=== PATIENT | male | born 1940 | race Caucasian/White ===

== ENCOUNTER 2019-06-26 23:27 | Inpatient (IN) | payer OTHER ==
--- OUTSIDE RECORDS SUMMARY | 2019-06-26 23:31 | XMS REPORT ---
:1940 Author Organization [facility] t Address [address] [place] [address] Care Team Providers Name Role Phone Unavailable Unavailable Unavailable Payers Payer Name Policy Type Policy Number Effective Date Expiration D ate Problems This patient has no known problems. Allergies, Adverse Reactions, Alerts Allergy Allergy Status Severity Reaction(s) Onset Inactive Treating C omments Name Type Date Date Clinician No Known DA Active U 2018-12 00:00:0 0 Medications This patient has no known medications. Encounters Start End Encounter Admission Attending Care Care Encounter Date/Time Date/Time Type Type Clinicians Facility Department ID 2019-04-08 Inpatient [facility] [id number] 05:46:00 2019-03-23 Inpatient [facility] CAR 7501 10:43:11 2019-02-24 2019-02-24 Outpatient [facility] CAR [id number] 11:40:00 11:40:00 Results Test Description Test Time Test Comments Text Results Atomic Results Result Comments ISTAT BLOOD GAS 2018-12-19 08:08:00 Test Item Value Reference Range Comments ISTAT-PH ARTERIAL (test code = PHAP) 7.283 7.32-7.50 ISTAT-PCO2 ARTERIAL (test code = PCO2AP) 52.2 MMHG 27.0-40 .0 ISTAT-PO2 ARTERIAL (test code = PO2AP) 45 MMHG 80.0-100. 0 ISTAT-HCO3 ARTERIAL (test code = HCO3AP) 24.7 MMOL/L 18-23 ISTAT-BASE EXCESS ARTERIAL (test code = BEAP) -2 MMOL/L ISTAT-SO2 ARTERIAL (test code = SO2AP) 74 % 95-98 IONIZED CALCIUM (test code = CAIABG) 1.23 MMOL/L 1.12-1.24 ISTAT-SODIUM (test code = NAP) 143 MMOL/L 137-144 ISTAT-POTASSIUM (test code = KP) 3.9 MMOL/L 3.1-4.8 ISTAT-GLUCOSE (test code = GLUP) 91 MG/DL 60-99 ISTAT BLOOD [id number] 08:08:00 Test Item Value Reference Range Comments ISTAT-PH ARTERIAL (test code = PHAP) 7.298 7.32-7.50 ISTAT-PCO2 ARTERIAL (test code = PCO2AP) 52.6 MMHG 27.0-40 .0 ISTAT-PO2 ARTERIAL (test code = PO2AP) 201 MMHG 80.0-100. 0 ISTAT-HCO3 ARTERIAL (test code = HCO3AP) 25.8 MMOL/L 18-23 ISTAT-BASE EXCESS ARTERIAL (test code = BEAP) -1 MMOL/L ISTAT-SO2 ARTERIAL (test code = SO2AP) 100 % 95-98 IONIZED CALCIUM (test code = CAIABG) 1.19 MMOL/L 1.12-1.24 ISTAT-SODIUM (test code = NAP) 142 MMOL/L 137-144 ISTAT-POTASSIUM (test code = KP) 3.8 MMOL/L 3.1-4.8 ISTAT-GLUCOSE (test code = GLUP) 93 MG/DL 60-99 BASIC METABOLIC [id number] 06:33:00 Test Item Value Reference Range Comments SODIUM (test code = NA) 140 MMOL/L 137-145 POTASSIUM (test code = K) 4.4 MMOL/L 3.5-5.1 CHLORIDE (test code = CL) 103 MMOL/L 98-107 CARBON DIOXIDE (test code = 27 MMOL/L 22-30 CO2) GLUCOSE (test code = GLU) 115 MG/DL 74-106 BLOOD UREA NITROGEN (test code 20 MG/DL 9-20 = BUN) GLOMERULAR FILTRATION RATE > 60 Repor ting units: ml/min/1.73 (test code = GFR) m2 (Modified MDRD Formula)Referenc e Range: > or = 60 ml/min/1 .73 m2 CREATININE (test code = CREAT) 0.90 MG/DL 0.66-1.25 CALCIUM (test code = CA) 9.4 MG/DL 8.4-10.2 LIPID PROFILE (CORONARY RISK)2018-12-19 06:33:00 Test Item Value Reference Range Comments TRIGLYCERIDES (test code = 79 MG/DL TRIGL YCERIDES REFERENCE TRIG) RANGE:Normal: <1 50 mg/dLBorderline High: 150-199 mg/dLHigh: 200-4 99 mg/dLVery High: >=500 mg/d L CHOLESTEROL (test code = CHOL) 156 MG/DL <200 HDL CHOLESTEROL (test code = 54 MG/DL 40-59 HDL) LIPOPROTEIN LDL (test code = 88 MG/DL 0-99 LDL) OPTIMAL......... <100 mg/dLNEAR OPTIMA L/ABOVE OPTIMAL......... 100-129 mg/dL BORDER LINE HIGH.........130 -159 mg/dL HIGH.........160 -189 mg/dL CARL Y HIGH.........>/= 190 mg/dL [id number] 06:33:00 Test Item Value Reference Range Comments MAGNESIUM (test code = MAG) 2.0 MG/DL 1.6-2.3 BASIC METABOLIC [id number] 06:23:00 Test Item Value Reference Range Comments SODIUM (test code = NA) 140 MMOL/L 137-145 POTASSIUM (test code = K) 4.4 MMOL/L 3.5-5.1 CHLORIDE (test code = CL) 103 MMOL/L 98-107 CARBON DIOXIDE (test code = 27 MMOL/L 22-30 CO2) GLUCOSE (test code = GLU) 115 MG/DL 74-106 BLOOD UREA NITROGEN (test code 20 MG/DL 9-20 = BUN) GLOMERULAR FILTRATION RATE > 60 Repor ting units: ml/min/1.73 (test code = GFR) m2 (Modified MDRD Formula)Referenc e Range: > or = 60 ml/min/1 .73 m2 CREATININE (test code = CREAT) 0.90 MG/DL 0.66-1.25 CALCIUM (test code = CA) 9.4 MG/DL 8.4-10.2 LIPID PROFILE (CORONARY RISK)2018-12-19 06:23:00 Test Item Value Reference Range Comments TRIGLYCERIDES (test code = 79 MG/DL TRIGL YCERIDES REFERENCE TRIG) RANGE:Normal: <1 50 mg/dLBorderline High: 150-199 mg/dLHigh: 200-4 99 mg/dLVery High: >=500 mg/d L CHOLESTEROL (test code = CHOL) 156 MG/DL <200 HDL CHOLESTEROL (test code = 54 MG/DL 40-59 HDL) LIPOPROTEIN LDL (test code = MG/DL 0-99 LDL) [id number] 06:23:00 Test Item Value Reference Range Comments MAGNESIUM (test code = MAG) 2.0 MG/DL 1.6-2.3 BASIC METABOLIC [id number] 06:22:00 Test Item Value Reference Range Comments SODIUM (test code = NA) 140 MMOL/L 137-145 POTASSIUM (test code = K) 4.4 MMOL/L 3.5-5.1 CHLORIDE (test code = CL) 103 MMOL/L 98-107 CARBON DIOXIDE (test code = 27 MMOL/L 22-30 CO2) GLUCOSE (test code = GLU) 115 MG/DL 74-106 BLOOD UREA NITROGEN (test code 20 MG/DL 9-20 = BUN) GLOMERULAR FILTRATION RATE > 60 Repor ting units: ml/min/1.73 (test code = GFR) m2 (Modified MDRD Formula)Referenc e Range: > or = 60 ml/min/1 .73 m2 CREATININE (test code = CREAT) 0.90 MG/DL 0.66-1.25 CALCIUM (test code = CA) MG/DL 8.7-9.7 LIPID PROFILE (CORONARY RISK)2018-12-19 06:22:00 Test Item Value Reference Range Comments TRIGLYCERIDES (test code = TRIG) MG/DL CHOLESTEROL (test code = CHOL) 156 MG/DL <200 HDL CHOLESTEROL (test code = HDL) MG/DL 40-59 LIPOPROTEIN LDL (test code = LDL) MG/DL 0-99 [id number] 06:22:00 Test Item Value Reference Range Comments MAGNESIUM (test code = MAG) MG/DL 1.6-2.3 BASIC METABOLIC [id number] 06:19:00 Test Item Value Reference Range Comments SODIUM (test code = NA) 140 MMOL/L 137-145 POTASSIUM (test code = K) 4.4 MMOL/L 3.5-5.1 CHLORIDE (test code = CL) 103 MMOL/L 98-107 CARBON DIOXIDE (test code = CO2) MMOL/L 22-30 GLUCOSE (test code = GLU) MG/DL 74-106 BLOOD UREA NITROGEN (test code = BUN) MG/DL 9-20 GLOMERULAR FILTRATION RATE (test code = GFR) CREATININE (test code = CREAT) MG/DL 0.66-1.25 CALCIUM (test code = CA) MG/DL 8.7-9.7 LIPID PROFILE (CORONARY RISK)2018-12-19 06:19:00 Test Item Value Reference Range Comments TRIGLYCERIDES (test code = TRIG) MG/DL CHOLESTEROL (test code = CHOL) MG/DL <200 HDL CHOLESTEROL (test code = HDL) MG/DL 40-59 LIPOPROTEIN LDL (test code = LDL) MG/DL 0-99 [id number] 06:19:00 Test Item Value Reference Range Comments MAGNESIUM (test code = MAG) MG/DL 1.6-2.3 PROTHROMBIN [id number] 06:12:00 Test Item Value Reference Range Comments PROTHROMBIN TIME PATIENT (test 10.4 SECONDS 9.6-11.6 code = PTP) INTERNATIONAL NORMAL RATIO 1.0 0.8-1.1 The I NR is to be used only (test code = INR) for monitoring oral anticoagulantthe rapy. INDICATION INR VALUE 1. Prophylaxis, haja p venous thrombosis, i ncluding high risk surger y. 2.0 - 3 .0 2. Prophylaxis, haja p venous thrombosis, h ip surgery, treatme nt for deep venous t hrombosis or pulmonary pre vention of systemic embo lism in patients with valvular heart disease, a trial fibrillation, tissue heart valve, or acute myocardial in farction. 2.0 - 3.0 3 . Mechanical prost hesis heart valves, recurrent systemic embolis m. 3.0 - 4. 5 Comments to Workforce Staffing Advisor: WILL BRING TO LABPTT [id number] 06:12:00 Test Item Value Reference Range Comments PTT ACTIVATED (test code = APTT) 29.6 SECONDS 22.0-33.0 Comments to Workforce Staffing Advisor: [facility] W/AUTO [id number] 05:58:00 Test Item Value Reference Range Comments WHITE BLOOD CELL (test code = WBC) 5.6 K/MM3 3.8-9.8 RED BLOOD CELL (test code = RBC) 4.09 M/MM3 3.95-5.67 HEMOGLOBIN (test code = HGB) 13.5 G/DL 12.4-16.7 HEMATOCRIT (test code = HCT) 41.9 % 35.9-49.5 MEAN CELL VOLUME (test code = MCV) 102 fL 81.7-96.1 MEAN CELL HGB (test code = MCH) 33.0 pg 27.6-33.2 MEAN CELL HGB CONCETRATION (test code = MCHC) 32.2 % 32 .9-35.5 RED CELL DISTRIBUTION WIDTH (test code = RDW) 13.4 % 12 .1-15.2 PLATELET COUNT (test code = PLT) 169 K/MM3 129-368 MEAN PLATELET VOLUME (test code = MPV) 9.5 fl 7.4-10.4 NEUTROPHIL % (test code = NT%) 65.2 % 43-75 IMMATURE GRANULOCYTE % (test code = IG%) 0.4 % 0.0-2.0 LYMPHOCYTE % (test code = LY%) 18.0 % 14-44 MONOCYTE % (test code = MO%) 10.9 % 4-13 EOSINOPHIL % (test code = EO%) 5.0 % 0-6 BASOPHIL % (test code = BA%) 0.5 % 0-2 NUCLEATED RBC % (test code = NRBC%) 0.0 % 0-1.0 NEUTROPHIL # (test code = NT#) 3.65 K/mm3 2.0-7.6 IMMATURE GRANULOCYTE # (test code = IG#) 0.02 x10 3/uL 0-0.03 LYMPHOCYTE # (test code = LY#) 1.01 K/mm3 1.0-3.8 MONOCYTE # (test code = MO#) 0.61 K/mm3 0.1-0.8 EOSINOPHIL # (test code = EO#) 0.28 K/mm3 0.0-0.2 BASOPHIL # (test code = BA#) 0.03 K/mm3 0.0-0.2 NUCLEATED RBC # (test code = NRBC#) 0.00 K/mm3 0.0-0.1
[2019-06-27 00:33] LABS: Absolute Lymphocytes (CBC) 0.1 K/uL (0.7-4.9); Basophils % 0.1 % (0-1.3); Lymphocytes % 1.1 % (15.3-44.8); MPV 8.2 fL (7.6-11.3); RBC Red Blood Cell Count 3.96 M/uL (4.33-5.43)
[2019-06-27] MEDS ORDERED: NA CHLORIDE 0.9% 1,000 ML ONE ×5 (00:37→16:32)
[2019-06-27 00:41] LABS: Protime INR 1.34
[2019-06-27 00:53] LABS: Albumin 3.6 g/dL (3.4-5.0); Bilirubin Direct 0.2 mg/dL (0-0.2); Bilirubin Total 0.8 mg/dL (0.2-1.0); Magnesium 1.7 mg/dL (1.8-2.4); Potassium 4.9 mmol/L (3.5-5.1); Protein, Total 7.9 g/dL (6.4-8.2); Troponin (Emerg Dept Use Only) 0.46 ng/mL (0.0-0.045)
[2019-06-27 01:21] LABS: Blood Morphology Comment NOT SEEN (NOT SEEN); Platelet Estimate ADEQ
[2019-06-27 01:59] LABS: Urine Appearance CLEAR; Urine Bilirubin NEGATIVE (NEG); Urine Blood 3+ (NEG); Urine Color YELLOW; Urine Glucose NEGATIVE (NEG); Urine Protein 2+ (NEG); Urine Urobilinogen 0.2 mg/dL (0.2-1.0); Urine pH 6.5 (5.0-7.0)
[2019-06-27 02:02] LABS: Urine Microscopic Reflex ORDER UMIC
[2019-06-27 02:14] LABS: Urine Amorphous Sediment 2+ /HPF (NONE SEEN); Urine Bacteria 20-50 /HPF (NONE SEEN); Urine Culture Reflex Order NOT NEEDED; Urine Mucus 2+ /HPF (NONE SEEN)
[2019-06-27] MEDS ORDERED: PIPER/TAZO/NS 3.375gm 3.375 GM/100 ML BAG ONE (03:00)
[2019-06-27] MEDS ORDERED: ACETAMINOPHEN 325 MG TABLET ONE (03:14)
[2019-06-27] MEDS ORDERED: ACETAMINOPHEN 650MG/RECT SUPP PR ONE (03:14)
[2019-06-27 03:56] LABS: Urine Blood 3+ (NEG); Urine Glucose NEGATIVE (NEG); Urine pH 6.5 (5.0-7.0)
[2019-06-27 03:57] LABS: Urine Protein 2+ (NEG)
[2019-06-27] MEDS ORDERED: NA CHLORIDE 0.9% 250 ML ONE (04:05)
[2019-06-27] MEDS ORDERED: VANCOMYCIN 1 GM/VIAL ONE (04:05)
--- NOTE | 2019-06-27 04:56 | ER ---
Nurse's Notes [facility] Name: Wing Vazquez Age: 79 yrs Sex: Male : 1940 Arrival Date: 06/26/2019 Time: 23:31 Bed 4 Private MD: Diagnosis: Other sepsis;Altered mental status, unspecified Presentation: 06/25 23:41 Chief complaint: Parent and/or Guardian states: Pale, weak, confused, abdominal pain ll1 for 1 day. Thrush had been getting better the past two weeks, but seems to be coming back. Coronavirus screen: Proceed with normal triage. Patient denies a cough. Patient denies shortness of breath or difficulty breathing. Patient denies measured and/or subjective temperature greater than 100.4F prior to today's visit. Patient denies travel on a cruise ship or to a country the [facility] currently lists as an affected area. Patient denies contact with known and/or suspected case of COVID-19. Ebola Screen: Patient denies travel to an Ebola-affected area in the 21 days before illness onset. Initial Sepsis Screen: Does the patient meet any 2 criteria? Altered Mental Status. HR > 90 bpm. Does the patient have a suspected source of infection? No. Patient's initial sepsis screen is negative. Risk Assessment: Do you want to hurt yourself or someone else? Patient reports no desire to harm self or others. Onset of symptoms was June 26, 2019. 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 - Social history:: Patient/guardian denies using alcohol, street drugs, tobacco products, Smoking status: Patient denies any tobacco usage or history of. Screenin:55 Abuse screen: Denies threats or abuse. Nutritional screening: No deficits noted. tl2 Tuberculosis screening: No symptoms or risk factors identified. Fall Risk IV access (20 points). Gait- Weak (10 pts.). Assessment: 23:55 General: Appears ill, emaciated, Behavior is cooperative, listless. Pain: Denies pain. tl2 Neuro: Level of Consciousness is awake, confused, listless, Oriented to person, place. Cardiovascular: Denies chest pain, Rhythm is sinus tachycardia. Respiratory: Airway is patent Respiratory effort is even, unlabored, Respiratory pattern is regular, symmetrical. GI: Parent/caregiver reports the patient having anorexia. : No signs and/or symptoms were reported regarding the genitourinary system. Derm: Skin is pale, Skin temperature is warm. 06/26 01:00 Reassessment: Patient appears in no apparent distress at this time. lp1 02:00 Reassessment: Patient appears in no apparent distress at this time. lp1 03:15 Reassessment: MD notified of pt's elevated temp, new orders see APR. tl2 03:55 Reassessment: MD aware of pt's worsening condition. ordered for spinal tap setup. tl2 Pt's power of gatehouse attendant is not present to give consent, MD stated that this procedure is emergent and to continue with procedure. 04:30 Reassessment: Dr. Schumacher at bedside, ordered Coronavirus test through [employer], will send lp1 to lab. 22:00 Reassessment: PT Transferred to ICU, awake,alert, stable, taken up with NS \T\ 100ml/hr jb4 and Levophed 9mcg/min infusing to PICC in right femoral area. Remains on monitor. Pt had 550 urine output from 1900 to 2200. Vital Signs: 06/25 23:41 BP 114 / 60; Pulse 129; Resp 17; Temp 99.4; Pulse Ox 98% ; ll1 23:55 BP 114 / 60; Pulse 121; Resp 22; Temp 99.4; Pulse Ox 99% on R/A; Weight 58.97 kg; lp1 Height 5 ft. 11 in. (180.34 cm); 06/26 00:52 BP 128 / 59; Pulse 128; Resp 22; Temp 98.6(O); Pulse Ox 99% on R/A; tl2 02:48 BP 105 / 50; Pulse 124; Resp 22; Pulse Ox 100% on R/A; tl2 03:15 BP 106 / 48; Pulse 124; Resp 22; Temp 103.4(A); Pulse Ox 99% on R/A; tl2 03:55 BP 110 / 54; Pulse 120; Resp 22; Temp 104.5(R); Pulse Ox 99% on R/A; tl2 05:30 Pulse 115; Resp 24; Temp 102.2(C); Pulse Ox 99% on R/A; tl2 06:09 BP 82 / 57; Pulse 115; Resp 25; Temp 103(C); Pulse Ox 97% on R/A; tl2 06:43 BP 95 / 59; Pulse 112; Resp 27; Temp 102.5(C); Pulse Ox 98% on R/A; tl2 08:01 Weight 68.04 kg; Height 5 ft. 7 in. (170.18 cm); em 08:01 Body Mass Index 23.49 (68.04 kg, 170.18 cm) em Trosper Coma Score: 00:00 Eye Response: spontaneous(4). Verbal Response: confused(4). Motor Response: obeys lp1 commands(6). Total: 14. ED Course: 06/25 23:31 Patient arrived in ED. cl3 23:42 Triage completed. ll1 23:44 Arm band placed on Patient placed in an exam room, on a stretcher. ll1 23:55 Patient has correct armband on for positive identification. Placed in gown. Bed in low tl2 position. Call light in reach. Side rails up X2. Adult w/ patient. 23:55 Inserted saline lock: 20 gauge in right forearm, using aseptic technique. Blood tl2 collected. 23:57 Poncho Lyons MD is Attending Physician. [facility] 06/26 00:36 XRAY Chest (1 view) In Process Unspecified. EDMS 00:49 Influenza Screen (a \T\ B) Sent. tl2 01:14 CT Head Brain wo Cont In Process Unspecified. EDMS 02:00 Lincoln cath inserted, using sterile technique, 16 Fr., by az, balloon inflated, to tl2 gravity drainage, urine specimen collected. 02:17 CT Abd/Pelvis - Without Contrast In Process Unspecified. EDMS 02:39 Karolyn Narayanan, RN is Primary Nurse. tl2 04:45 Assist provider with lumbar puncture: Set up LP tray. Performed by Poncho Lyons MD lp1 CSF is clear. Puncture site dressed with band aid, Procedure was successful. Patient tolerated well. 04:53 Cornelio Murphy MD is Hospitalizing Provider. mh7 05:29 original lincoln removed and replaced with a Criticore lincoln to monitor temp. tl2 07:44 Patient admitted, IV remains in place. lp1 10:10 Attending Physician role handed off by Poncho Lyons MD tamera 10:10 Jones Steel MD is Attending Physician. tamera Administered Medications: 00:49 Drug: NS 0.9% 1000 ml Route: IV; Rate: 1 bolus; Site: right antecubital; tl2 01:30 Follow up: IV Status: Completed infusion; IV Intake: 1000ml lp1 02:40 Drug: Zosyn 3.375 grams Route: IVPB; Infused Over: 60 mins; Site: right forearm; tl2 04:07 Follow up: IV Status: Completed infusion; IV Intake: 100ml tl2 03:45 Drug: Tylenol Suppository 650 mg Route: DC; tl2 07:46 Follow up: Response: No adverse reaction; Temperature is decreased lp1 04:06 Drug: vancoMYCIN 1 grams Route: IVPB; Infused Over: 2 hrs; Site: right forearm; tl2 07:45 Follow up: IV Status: Completed infusion; IV Intake: 250ml lp1 04:06 Drug: NS 0.9% 1000 ml Route: IV; Rate: 125 ml/hr; Site: right forearm; tl2 13:09 Follow up: IV Status: Completed infusion; IV Intake: 1000ml em Intake: 01:30 IV: 1000ml; Total: 1000ml. lp1 04:07 IV: 100ml; Total: 1100ml. tl2 07:45 IV: 250ml; Total: 1350ml. lp1 13:09 IV: 1000ml; Total: 2350ml. em Outcome: 04:55 Decision to Hospitalize by Provider. mh7 07:44 Admitted to ER Hold. Please see [facility] for further documentation. lp1 07:44 critical 22:16 Patient left the ED. mw2 Signatures: Dispatcher [employer] EDJones Piña MD MD cha Munoz, Edgar, RN RN em Pena, Laura RN RN lp1 Karolyn Narayanan RN RN tl2 Jonnathan Ortiz RN RN 4 Graham Calles 2 Fabiana Mccormick cl3 Monico Mccormick RN RN ll1 Poncho Lyons MD MD mh7 Corrections: (The following items were deleted from the chart) 01:16 00:52 BP 128 / 59; Pulse 128bpm; Resp 22bpm; Pulse Ox 99% RA; tl2 tl2 07:28 05/09 23:55 BP 114 / 60; Pulse 121bpm; Resp 22bpm; Pulse Ox 99% RA; Temp 99.4F; tl2 lp1
--- NOTE | 2019-06-27 04:56 | EDPHYS ---
Physician Documentation [facility] Name: Wing Vazquez Age: 79 yrs Sex: Male : 1940 Arrival Date: 06/26/2019 Time: 23:31 Bed 4 Private MD: ED Physician Jones Steel HPI: 06/26 00:37 This 79 yrs old Male presents to ER via Wheelchair with complaints of Altered mh7 Mental Status. 00:37 The patient presents with confusion, decreased appetite. Onset: The symptoms/episode mh7 began/occurred yesterday. Possible causes: unknown. Associated signs and symptoms: Pertinent positives: confusion, weakness, decreased appetite. Current symptoms: In the emergency department the patient's symptoms are unchanged from the initial presentation. Unable to obtain HPI due to altered mental status. Historical: - Allergies: 06/25 23:44 No Known Allergies; ll1 - PMHx: 23:44 ataxia; Pneumonia; hemachromatosis; Hypertension; ll1 - PSHx: 23:44 Left ear; ll1 23:44 heart valve replacement 04/08; ll1 - Immunization history:: Adult Immunizations up to date. - Social history:: Patient/guardian denies using alcohol, street drugs, tobacco products, Smoking status: Patient denies any tobacco usage or history of. ROS: 06/26 00:37 Unable to obtain ROS due to altered mental status. 7 05:04 Allergy/Immunology: Negative for hives, rash, and allergies. 7 Exam: 00:37 Head/Face: Normocephalic, atraumatic. Eyes: Pupils equal round and reactive to light, mh7 extra-ocular motions intact. Lids and lashes normal. Conjunctiva and sclera are non-icteric and not injected. Cornea within normal limits. Periorbital areas with no swelling, redness, or edema. Neck: Trachea midline, no thyromegaly or masses palpated, and no cervical lymphadenopathy. Supple, full range of motion without nuchal rigidity, or vertebral point tenderness. No Meningismus. Chest/axilla: Normal chest wall appearance and motion. Nontender with no deformity. No lesions are appreciated. Abdomen/GI: Soft, non-tender, with normal bowel sounds. No distension or tympany. No guarding or rebound. No evidence of tenderness throughout. Back: No spinal tenderness. No costovertebral tenderness. Full range of motion. Skin: Warm, dry with normal turgor. Normal color with no rashes, no lesions, and no evidence of cellulitis. MS/ Extremity: Pulses equal, no cyanosis. Neurovascular intact. Full, normal range of motion. 00:37 ENT: Mouth: Lips: dry, Oral mucosa: dry, Tongue: 00:37 Cardiovascular: Rate: tachycardic, Rhythm: regular, Pulses: no pulse deficits are appreciated, Heart sounds: normal, normal S1and S2, Edema: is not appreciated, JVD: is not appreciated. 00:37 Respiratory: the patient does not display signs of respiratory distress, Respirations: normal, Breath sounds: rhonchi, that are mild, are scattered, Respiratory rate: normal 00:37 Abdomen/GI: Exam negative for abnormal bowel sounds, bruising, discomfort, distension, guarding, injury, masses, pulsatile mass, rebound tenderness, scars, splenomegaly, tenderness, Inspection: 07:03 ECG was reviewed by the Attending Physician. 7 Vital Signs: 06/25 23:41 BP 114 / 60; Pulse 129; Resp 17; Temp 99.4; Pulse Ox 98% ; ll1 23:55 BP 114 / 60; Pulse 121; Resp 22; Temp 99.4; Pulse Ox 99% on R/A; Weight 58.97 kg; lp1 Height 5 ft. 11 in. (180.34 cm); 06/26 00:52 BP 128 / 59; Pulse 128; Resp 22; Temp 98.6(O); Pulse Ox 99% on R/A; tl2 02:48 BP 105 / 50; Pulse 124; Resp 22; Pulse Ox 100% on R/A; tl2 03:15 BP 106 / 48; Pulse 124; Resp 22; Temp 103.4(A); Pulse Ox 99% on R/A; tl2 03:55 BP 110 / 54; Pulse 120; Resp 22; Temp 104.5(R); Pulse Ox 99% on R/A; tl2 05:30 Pulse 115; Resp 24; Temp 102.2(C); Pulse Ox 99% on R/A; tl2 06:09 BP 82 / 57; Pulse 115; Resp 25; Temp 103(C); Pulse Ox 97% on R/A; tl2 06:43 BP 95 / 59; Pulse 112; Resp 27; Temp 102.5(C); Pulse Ox 98% on R/A; tl2 08:01 Weight 68.04 kg; Height 5 ft. 7 in. (170.18 cm); em 08:01 Body Mass Index 23.49 (68.04 kg, 170.18 cm) em Elizabeth Coma Score: 00:00 Eye Response: spontaneous(4). Verbal Response: confused(4). Motor Response: obeys lp1 commands(6). Total: 14. Procedures: 04:56 Lumbar Puncture: Patient placed in right lateral decubitus position. Prepped with [facility] Betadine. Draped using sterile technique. Collected 8 ml's of clear fluid. Sample sent to lab. Puncture site dressed with band aid, Patient tolerated well. 10:10 Central Line: the site was prepped with Betadine, in sterile fashion, a triple lumen tamera catheter was inserted, in the right in 1 attempts. placement was verified, by blood return, the site was dressed with using sterile technique, the patient tolerated the procedure, well. MDM: 06/25 23:58 Patient medically screened. [facility] 06/26 04:56 Differential Diagnosis: CVA, electrolyte abnormality, hypoglycemia, intracranial bleed, [facility] meningitis, pneumonia, sepsis, UTI, volume depletion. Data reviewed: vital signs, nurses notes, EKG, radiologic studies, plain films. Data interpreted: firestop/containment worker: rate is 120 beats/min, rhythm is regular, Interpretation: Pulse oximetry: on room air is 99 %. Medication response: acetaminophen administration has lowered the patient's temperature. Response to treatment: the patient's symptoms have mildly improved after treatment. ED course: Still with some confusion but follows most commands, tachycardia but vitals otherwise stable, no focal neurological deficits. LP performed with results pending. Discussed with and admitted to Dr. Murphy for ICU care.. 06/26 00:10 Order name: Basic Metabolic Panel; Complete Time: : [facility] 06/26 00:10 Order name: CBC with Diff; Complete Time: : [facility] 06/26 00:10 Order name: LFT's; Complete Time: : [facility] 06/26 00:10 Order name: Magnesium; Complete Time: : [facility] 06/26 00:10 Order name: NT PRO-BNP; Complete Time: : [facility] 06/26 00:10 Order name: PT-INR; Complete Time: 01:03 [facility] 06/26 00:10 Order name: Troponin (emerg Dept Use Only); Complete Time: 01:03 [facility] 06/26 00:10 Order name: Urinalysis; Complete Time: 02:18 [facility] 06/26 00:10 Order name: Lactate; Complete Time: 01:03 [facility] 06/26 00:10 Order name: Influenza Screen (a \T\ B); Complete Time: 02:18 [facility] 06/26 00:10 Order name: AMMONIA; Complete Time: 01:29 [facility] 06/26 01:04 Order name: Blood Culture Adult (2) [facility] 06/26 01:20 Order name: Manual Differential; Complete Time: 01:29 [facility] 06/26 01:49 Order name: Urine Culture [facility] 06/26 00:10 Order name: XRAY Chest (1 view) [facility] 06/26 00:10 Order name: CT Head Brain wo Cont [facility] 06/26 01:34 Order name: CT Abd/Pelvis - Without Contrast [facility] 06/26 02:05 Order name: Urine Microscopic Only; Complete Time: 02:18 [facility] 06/26 03:45 Order name: Urine Dipstick--Ancillary (enter results); Complete Time: 04:50 [facility] 06/26 03:56 Order name: Lactate Sepsis 2 HR Follow-up; Complete Time: 04:50 [facility] 06/26 04:44 Order name: CSF Bacterial Antigens (tube 1); Complete Time: 09:41 [facility] 06/26 04:44 Order name: Csf Culture [facility] 06/26 04:44 Order name: Fluid Cell Count,Body; Complete Time: 09:41 [facility] 06/26 04:44 Order name: Spinal Fluid Profile; Complete Time: 09:41 [facility] 06/26 05:00 Order name: Troponin (emerg Dept Use Only); Complete Time: 09:41 [facility] 06/26 05:18 Order name: COVID-19 [facility] 06/26 20:00 Order name: US EDVT 06/26 00:10 Order name: EKG; Complete Time: 00:11 [facility] 06/26 00:10 Order name: Cardiac monitoring; Complete Time: 00:29 [facility] 06/26 00:10 Order name: EKG - Nurse/Tech; Complete Time: 00:29 7 06/26 00:10 Order name: IV Saline Lock; Complete Time: 00: 7 06/26 00:10 Order name: Labs collected and sent; Complete Time: 00:06/26 00:10 Order name: O2 Per Protocol; Complete Time: 00:7 06/26 00:10 Order name: O2 Sat Monitoring; Complete Time: 00: 7 06/26 04:44 Order name: LP Consents; Complete Time: 04:47 7 06/26 04:44 Order name: LP Setup; Complete Time: 04:47 7 06/26 05:59 Order name: CONS Pharmacy Consult EDVT 06/26 05:59 Order name: CONS Physician Consult [facility] 06/26 05:59 Order name: Heart Healthy EDMS EC:03 Rate is 122 beats/min. Rhythm is regular. QRS [place] is Normal. MN interval is normal. [facility] QRS interval is normal. QT interval is normal. No Q waves. T waves are Inverted in leads V1, V2, V3. Administered Medications: 00:49 Drug: NS 0.9% 1000 ml Route: IV; Rate: 1 bolus; Site: right antecubital; tl2 01:30 Follow up: IV Status: Completed infusion; IV Intake: 1000ml lp1 02:40 Drug: Zosyn 3.375 grams Route: IVPB; Infused Over: 60 mins; Site: right forearm; tl2 04:07 Follow up: IV Status: Completed infusion; IV Intake: 100ml tl2 03:45 Drug: Tylenol Suppository 650 mg Route: MN; tl2 07:46 Follow up: Response: No adverse reaction; Temperature is decreased lp1 04:06 Drug: vancoMYCIN 1 grams Route: IVPB; Infused Over: 2 hrs; Site: right forearm; tl2 07:45 Follow up: IV Status: Completed infusion; IV Intake: 250ml lp1 04:06 Drug: NS 0.9% 1000 ml Route: IV; Rate: 125 ml/hr; Site: right forearm; tl2 13:09 Follow up: IV Status: Completed infusion; IV Intake: 1000ml em Disposition: 04:56 Critical Care:. [facility] 07:00 Co-signature as Attending Physician, Poncho Lyons MD. mh7 Disposition: 06/27/19 04:55 Hospitalization ordered by Cornelio Murphy for Inpatient Admission. Preliminary diagnosis are Other sepsis, Altered mental status, unspecified. - Bed requested for Intensive Care Unit. - Status is Inpatient Admission. mw2 - Condition is Serious. - Problem is new. - Symptoms are unchanged. Critical care time excluding procedures: 04:56 Critical care time: Bedside Care: 15 minutes, Consultation: 5 minutes, Family 7 Intervention: 10 minutes. Total time: 30 minutes Signatures: Dispatcher [employer] EDVT Pam Gloria RN Rosio Swenson RN Jones Burnette MD MD cha Knox, Taylor, RN RN 2 Marli, Graham 2 Monico Mccormick RN RN 1 Poncho Lyons MD MD Andrei Ocampo RN em Lyssa Vasquez RN lp1 Corrections: (The following items were deleted from the chart) 01:53 01:50 UA MICROSCOPIC+U.LAB.BRZ ordered. [facility] EDVT 06:02 04:55 Hospitalization Ordered by Cornelio Murphy MD for Inpatient Admission. Preliminary mw diagnosis is Other sepsis; Altered mental status, unspecified. Bed requested for Intensive Care Unit. Status is Inpatient Admission. Condition is Serious. Problem is new. Symptoms are unchanged. 7 19:43 06:02 06/27/2019 04:55 Hospitalization Ordered by Cornelio Murphy MD for Inpatient dw Admission. Preliminary diagnosis is Other sepsis; Altered mental status, unspecified. Bed requested for [facility] ER HOLD. Status is Inpatient Admission. Condition is Serious. Problem is new. Symptoms are unchanged. mw 22:16 19:43 06/27/2019 04:55 Hospitalization Ordered by Cornelio Murphy MD for Inpatient mw2 Admission. Preliminary diagnosis is Other sepsis; Altered mental status, unspecified. Bed requested for Intensive Care Unit. Status is Inpatient Admission. Condition is Serious. Problem is new. Symptoms are unchanged. dw
[2019-06-27 05:42] LABS: CSF Glucose 63 mg/dL (40-70)
[2019-06-27] MEDS ORDERED: ONDANSETRON 4 MG/2 ML VIAL IV PRN (05:50)
[2019-06-27] MEDS: Levofloxacin500mg IV 500 MG/100 ML BAG IV SCH (06:00)
[2019-06-27] MEDS: NA CHLORIDE 0.9% 1,000 ML IV SCH ×2 (06:00→15:12)
[2019-06-27 06:24] LABS: Appearance CLEAR (CLEAR); Body Fluid Source CSF; Body Fluid WBC 2 /mm^3; Color of fluid Colorless (COLORLESS)
[2019-06-27] MEDS: HYDROCORTISONE SUC 100 MG INJ IV SCH ×2 (06:30→21:00)
[2019-06-27 06:34] LABS: Appearance CLEAR (CLEAR); Body Fluid Source CSF; Color of fluid Colorless (COLORLESS); Fluid Total Volume 8 ml
[2019-06-27 06:35] LABS: Body Fluid WBC 3 /mm^3
[2019-06-27] MEDS ORDERED: HYDROCORTISONE SUC 100 MG INJ ONE ×2 (06:39→21:25)
[2019-06-27] MEDS ORDERED: CEFTRIAXONE/SWI 1gm 1 GM/10 ML SYR ONE (07:36)
[2019-06-27] MEDS ORDERED: ENOXAPARIN 40 MG/0.4 ML SQ ONE (07:37)
[2019-06-27] MEDS ORDERED: NA CHLORIDE 0.9% 1,000 ML IV ONE (08:00)
--- NOTE | 2019-06-27 08:01 | P.PN ---
Subjective Date of Service: 06/27/19 Primary Care Provider: Dr. Pandya Chief Complaint: Fever Subjective: Other (Follow up sepsis reassessment. Patient is confused. BP low. Making sure Bolus protocol in place. Will order for more fluid bolus and Levophed. SPoke to family. He has history of Hemochromotosis(Dr. Majano), Recent heart valve surgery in [place] with Dr. 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 Family says that he was having fever today and not feeling well.) Physical Examination - Physical Exam General: Cachectic, Confused HEENT: Other (dry mucous membranes) Neck: Supple Respiratory: Clear to auscultation bilaterally, Normal air movement Cardiovascular: Normal pulses, Regular rate/rhythm Gastrointestinal: Normal bowel sounds, Soft and benign, Non-distended Integumentary: No breakdown, No tenderness/swelling, No erythema, No cyanosis, Warmth Neurological: Other (confused) Urinary: Bang catheter - Studies Laboratory Data (last 24 hrs) 06/27/19 00:15: PT 15.7 H, INR 1.34 06/27/19 00:15: WBC 12.8 H, Hgb 12.5 L, Hct 38.0 L, Plt Count 131 L 06/27/19 00:15: Sodium 132 L, Potassium 4.9, BUN 32 H, Creatinine 1.79 H, Glucose 116 H, Magnesium 1.7 L, Total Bilirubin 0.8, AST 74 H, ALT 15, Alkaline Phosphatase 56 Microbiology Data (last 24 hrs): 06/27/19 04:45 Cerebral Spinal Fluid Gram Stain - Final 06/27/19 03:29 Blood - Blood Anaerobic Blood Culture - Final 06/27/19 04:45 Cerebral Spinal Fluid CSF Bacterial Antigens (Tube 1) - Final 06/27/19 00:35 Nasopharnyx Influenza Type A Antigen Screen - Final 06/27/19 00:35 Nasopharnyx Influenza Type B Antigen Screen - Final Medications List Reviewed: Yes (takes Coreg, Lisinopril, Pravastatin, Carbidopa/levodopa, Singulair) Assessment & Plan Discharge Plan: Home Plan to discharge in: Greater than 2 days - Code Status/Comfort Care Code Status Assessed: Yes (Discussed with MPOA, Patient is DNR. ) Physician Review Additional Text: Impression: Fever, Fatigue secondary to Septic Shock with toxic encephalopathy likely related to UTI vs other infetious process Acute renal failure likely related to above Elevated trop lilkely cardiac strain with recent heart valve replacement in March Hx of HTN Hyperlipidemia Ataxia Hyperlipidemia Seasonal allergies Plan: Fever, Fatigue secondary to Septic Shock with toxic encephalopathy likely related to UTI vs other infetious process: Continue with Sepsis protocol. Now on multiple antibiotics. Continue with aggressive fluids. Will add Levophed to maintain MAP. Blood, urine, spinal and nasal swab obtained. COVID testing in progress. Spoke to family-MPOA. Advance directives addressed. He is DNR. Continue with closely monitor. Waiting for ICU bed. Will add DVT prophylaxis. Consulted Renal/PCP-Dr. Pandya, Cardiology-Dr. Sloan, and Pulmonary/ICU-Dr. Manzo. Continue with current meds. Await further recommendations. Acute renal failure likely related to above: Continue as above. Hold Lisinopril Elevated trop lilkely cardiac strain with recent heart valve replacement in March: Monitor Trop, cardiology to address and speak to his outpatient circuitry negative inspector. Obtain ECHO. Hx of HTN: Hold Lisinopril and Coreg. Monitor closely. Continue as above Hyperlipidemia:Restart medication once stable. Ataxia: Will need to restart once more stable. Seasonal allergies: Hold medication. Time Spent Managing Pts Care (In Minutes): 60
--- NOTE | 2019-06-27 08:39 | EKG ---
Test Date: 2019-06-27 Test Time: 00:22:04 Handle Sewer: [place] MEASUREMENT RESULTS: Intervals: Rate: 122 [place]: 178 QRSD: 120 QT: 320 QTc: 456 [place]: P: 75 [place]: 178 QRS: -43 T: 114 INTERPRETIVE STATEMENTS: Sinus tachycardia Left axis deviation Possible Anterior infarct, age undetermined ST & T wave abnormality, consider lateral ischemia Abnormal ECG Compared to ECG 10/25/2014 16:34:25 Left-axis deviation now present Myocardial infarct finding now present ST (T wave) deviation now present Possible ischemia now present Sinus rhythm no longer present Electronically Signed On 06-27-19 08:38:23 CDT by Eh Sloan
[2019-06-27] MEDS: THIAMINE 200 MG/2 ML INJ IVP SCH (09:00)
[2019-06-27] MEDS: FAMOTIDINE 20 MG/2 ML VIAL IV SCH (09:00)
[2019-06-27] MEDS ORDERED: ENOXAPARIN 40 MG/0.4 ML SQ SCH (09:00)
[2019-06-27] MEDS ORDERED: CEFTRIAXONE/SWI 1gm 1 GM/10 ML SYR IV SCH (09:00)
[2019-06-27] MEDS ORDERED: THIAMINE 200 MG/2 ML INJ ONE (09:22)
[2019-06-27] MEDS ORDERED: FAMOTIDINE 20 MG/2 ML VIAL IV ONE (09:22)
[2019-06-27] MEDS: NOREPINEPHRINE 4 MG in D5W 250 ML IV PRN (10:10)
--- NOTE | 2019-06-27 11:04 | RAD REPORT ---
EXAM DESCRIPTION: RAD - Chest Single View - 06/27/2019 12:35 am CLINICAL HISTORY: MALAISE Chest pain. COMPARISON: CHEST SINGLE VIEW dated 10/25/2014 FINDINGS: Portable technique limits examination quality. The lungs are grossly clear. The heart is normal in size. Valve replacement noted. IMPRESSION: No acute intrathoracic process suspected.
[2019-06-27] MEDS ORDERED: VANCOMYCIN 750 MG in NA CHLORIDE 0.9% 150 ML IVPB ONE (12:00)
[2019-06-27] MEDS ORDERED: MAGNESIUM SULFATE 1 gm IVPB 1 GM/100 ML BAG IV ONE ×2 (14:50→15:00)
[2019-06-27] MEDS ORDERED: ACETAMINOPHEN 500 MG TAB ONE (16:00)
[2019-06-27] MEDS ORDERED: VANCOMYCIN/NS 1 gm 1 GM/250 ML BAG IVPB SCH (16:00)
[2019-06-27] MEDS: ACETAMINOPHEN 500 MG TAB PO PRN ×2 (16:01→22:51)
--- NOTE | 2019-06-27 16:40 | P.CNS ---
Date of Consult: 06/27/19 Primary Care Provider: Dr. Pandya Chief Complaint: Fever shock History of Present Illness: Patient is 79 years of age in [facility] virus isolation room history obtained from review of medical records and discussion with the nurse was admitted feeling weak confused abdominal discomfort nose with thrush recently denies any pulmonary complaints patient was febrile. Is hypotensive currently on IV fluids lumbar puncture was negative Allergies seasonal allergies Allergy (Uncoded 11/03/14 20:03) Unknown - Past Medical/Surgical History -: Hemochromatosis -: Hypertension -: Ataxia -: Recent heart valve surgery Physical Examination Temp Pulse Resp BP Pulse Ox 100.5 F 98 H 18 118/73 98 06/27/19 16:01 06/27/19 12:00 06/27/19 15:45 06/27/19 15:45 06/27/19 15:45 Laboratory Data (last 24 hrs) 06/27/19 00:15: PT 15.7 H, INR 1.34 06/27/19 00:15: WBC 12.8 H, Hgb 12.5 L, Hct 38.0 L, Plt Count 131 L 06/27/19 00:15: Sodium 132 L, Potassium 4.9, BUN 32 H, Creatinine 1.79 H, Glucose 116 H, Magnesium 1.7 L, Total Bilirubin 0.8, AST 74 H, ALT 15, Alkaline Phosphatase 56 - Problems (1) Shock Current Visit: Yes Status: Acute Plan: Patient is 79 years of age admitted with fever and hypotension is currently on Levophed drip lumbar puncture is negative for meningitis coronal virus test is pending this fever persists chest x-rays clear patient has renal insufficiency patient's troponin is also elevated mildly elevated PT lactic acid and BNP are also significantly elevated white count mildly elevated no evidence of urosepsis cultures are pending Dc Rocephin continue with vancomycin and levofloxacin According the family members he was pale weak infuse abdominal pain also there is a history of thrush room-air saturation satisfactory high risk for Crohn virus infection bolus with IV fluids
--- NOTE | 2019-06-27 16:50 | CON ---
Date of Consultation: 06/27/[address] Murphy's service on 06/27/2019. I saw the patient on 06/27/2019. Reason For Consultation: Elevated troponin. History Of Present Illness: Mr. Vazquez is a 79-year-old white male. He is a patient of Dr. Wilmer montejo. Apparently, he recently underwent a bioprosthetic aortic valve replacement on 04/08. I discussed the case with Dr. Gunderson. It sounds like patient had normal coronaries then. He also has a histor y of hypertension, ataxia, pneumonia and hemochromatosis. He came in with what appeared to be urosep sis, hypotensive, altered mental status and was found to have elevated troponin. I was consulted. T here is no report of chest pain, nausea, vomiting, diaphoresis, PND, orthopnea, pedal edema, palpitat ion, or syncope. Past Medical History: As stated above. Allergies: NONE. Review of Systems: Negative. Social History: Negative. Family History: Noncontributory. Medications: Listed by Dr. Murphy. Physical Examination: General: Mr. Vazquez was rather obtunded, alert to name only, but not very responsive. Vital Signs: His blood pressure when I first saw him was 80/50. He was in a sinus tach. He was afe brile. HEENT: Negative. Neck: Supple with no bruit, lymphadenopathy, JVD, or thyromegaly. Chest: Fully clear to auscultation and percussion. Cardiac: Revealed a regular rhythm and rate. No murmurs, gallops, or rubs. Abdomen: Benign. Extremities: Revealed no clubbing, cyanosis, or edema. Diagnostic Data: He had a CT of his head that was pending. Chest x-ray was pending. CT of his abdo men and pelvis was pending. His creatinine was 1.79, white count was 12,000. His lactic acid was el evated at 2.8. His troponin was 0.89. His BNP was 4600. Impression And Plan: Hypotension secondary to septic shock, probably urosepsis. I think this is wha t is causing the elevated troponin, elevated white count, elevated creatinine, and altered mental sta tus. The patient is presently on multiple antibiotics and Lovenox. Multiple studies are pending inc luding chest x-ray, CT of his head, abdomen and pelvis. Renal has been consulted. Pulmonary has bee n consulted. Echocardiogram is pending for tomorrow. Continue present regimen. Central line had be en placed just in case one has to use Levophed. Meanwhile, he needs to be hydrated and we will see h ow he does. The case was discussed with Dr. Keyes who was covering for Dr. Murphy and the case was discussed with Dr. Gunderson as well. DEBBIE/MARLENY Voice ID: [id number] Report ID: [id number]
--- NOTE | 2019-06-27 19:58 | RAD REPORT ---
EXAM DESCRIPTION: US - Renal Ultrasound-Complete - 06/27/2019 7:47 pm CLINICAL HISTORY: Acute renal failure Flank pain COMPARISON: ABDOMINAL EXAM COMPLETE dated 04/10/2015 FINDINGS: Both kidneys are normal in size, shape and echotexture. The right kidney measures 10.3 x 4.7 x 4.1 cm. No hydronephrosis, focal mass or perinephric fluid. The left kidney measures 10.6 x 4.9 x 4.9 cm. No hydronephrosis, focal mass or perinephric fluid. 3.4 x 2.8 cm simple cyst cortex of left kidney. The urinary bladder is incompletely distended without gross abnormality seen. IMPRESSION: 3.4 cm simple cyst left kidney, otherwise unremarkable study.
[2019-06-27] MEDS ORDERED: CEFTRIAXONE/SWI 1gm 1 GM/10 ML SYR IVP SCH (21:00)
--- NOTE | 2019-06-27 21:42 | RAD REPORT ---
EXAM DESCRIPTION: CT Abdomen and Pelvis Without Intravenous Contrast CLINICAL HISTORY: The patient is 79 years old and is Male; AMS abdominal pain TECHNIQUE: Axial computed tomography images of the abdomen and pelvis without intravenous contrast. Sagittal and coronal reformatted images were created and reviewed. This CT exam was performed usi ng one or more of the following dose reduction techniques: automated exposure control, adjustment o f the mA and/or kV according to patient size, and/or use of iterative reconstruction technique. COMPARISON: No relevant prior studies available. FINDINGS: LUNG BASES: Minimal dependent densities in the lung bases are present. ABDOMEN: LIVER: Homogeneous without focal mass. GALLBLADDER AND BILE DUCTS: No calcified stones. No ductal dilation. PANCREAS: The pancreas is atrophic. No ductal dilation. SPLEEN: Unremarkable. ADRENALS: Unremarkable. No mass. KIDNEYS AND URETERS: Exophytic left renal cyst measuring 2.9 cm is present. No follow-up imaging is recommended. There is no hydronephrosis or hydroureter of either kidney. STOMACH AND BOWEL: The stomach is minimally distended. The small bowel is normal in caliber. A m oderate amount of stool is present throughout colon. No evidence of bowel obstruction. No significant bowel wall thickening. Colonic diverticulosis is noted, without associated inflammatory changes to s uggest diverticulitis. PELVIS: APPENDIX: No findings to suggest acute appendicitis. BLADDER: The bladder is decompressed with a Bang catheter in place. No stones. REPRODUCTIVE: Unremarkable as visualized. ABDOMEN and PELVIS: INTRAPERITONEAL SPACE: Unremarkable. No free air. No significant fluid collection. BONES/JOINTS: Multilevel degenerative change of the spine is present. SOFT TISSUES: The soft tissues are normal. VASCULATURE: Minimal atherosclerosis of the vasculature is present. No abdominal aortic aneury sm. LYMPH NODES: Unremarkable. No enlarged lymph nodes. IMPRESSION: Colonic diverticulosis without evidence of diverticulitis. Electronically signed by: Deann Gastelum MD 06/27/2019 2:29 AM CDT Due to temporary technical issues with the PACS/Fluency reporting system, reports are being signed by the in house radiologist as a courtesy to ensure prompt reporting. The interpreting radiologist is f ully responsible for the content of the report.
--- NOTE | 2019-06-27 21:44 | RAD REPORT ---
EXAM DESCRIPTION: CT HEAD WITHOUT CONTRAST CLINICAL HISTORY: CONFUSED TECHNIQUE: Contiguous axial CT images obtained through the brain without IV contrast. Coronal and sa gittal reformatted images were provided. This exam was performed according to our departmental dose-optimization program, which includes autom ated exposure control, adjustment of the mA and/or kV according to patient size and/or use of iterati ve reconstruction technique. COMPARISON: None available for comparison FINDINGS: Brain: There is mild cerebral atrophy. Mild bilateral periventricular and subcortical whit e matter hypodensity which is nonspecific and can be seen in the clinical setting of chronic microvas cular angiopathy. Hammer-white matter differentiation is within normal limits. No hemorrhage. Ventricles: No ventriculomegaly or midline shift. Extra-axial spaces: No extra-axial collection or hemorrhage. Paranasal sinuses and mastoid air cells: Bilateral frontal and anterior ethmoid sinus opacification. Minimal bilateral maxillary sinus mucosal thickening. Postsurgical changes of the left mastoid air ce lls. Vessels: There is atherosclerotic disease of the internal carotid and vertebral arteries bilaterally. Bones: Unremarkable Soft tissues: Unremarkable IMPRESSION: 1. No acute hemorrhage, focal mass or large territory infarction. 2. Other findings as above. Electronically signed by: Althea Dorman MD 06/27/2019 1:42 AM CDT Due to temporary technical issues with the PACS/Fluency reporting system, reports are being signed by the in house radiologist as a courtesy to ensure prompt reporting. The interpreting radiologist is f ully responsible for the content of the report.
--- NOTE | 2019-06-28 00:26 | CON ---
Date of Consultation: 06/27/2019 Requesting Provider: Yonathan Keyes D.O. Reason For Consultation: Acute kidney injury. History Of Present Illness: Mr. Vazquez is a 79-year-old male who is a highly functioning cerebral palsy patient, who presented to the hospital with fatigue, altered mental status. He lives with his brother and [id number], and when he presented here, he was found to have septic shock with fever, elevated white blood cell count. Our consultation was requested as the patient had a creatinine of 1 .79 on presentation. The patient is known to me from clinic. He has cerebral palsy, which is baseli ne and is using a walker due to his ataxia. He does have deafness; however, the patient is able to v erbalize and converse fairly normally. Review of the chart showed not really any NSAID or contrast use. Thus far, in the emergency room, the patient has had a full sepsis workup including a lumbar puncture . He is currently seen here in the ER [place]. He is on IV pressors. He is responsive, although very s luggish and not at his baseline mentation. Medications were reviewed. Since admission, the patient has received 2 L of sodium chloride as well as broad-spectrum antibiotics and 1 dose of steroids. He is continuing on antibiotics and IV fluids. Past Medical History: As stated above, the patient also had TAVR procedure approximately 5 months ag o in January by Dr. Case in [place]. That had been without event. Family History: Noncontributory. Physical Examination: Vital Signs: Blood pressure 110/66, pulse 111, temperature 100.5. General: Lethargic. No acute distress. Heart: Tachycardic, regular. Lungs: Grossly clear. Abdomen: Soft. Extremities: No significant edema. Laboratory Data: Sodium 132, potassium 4.9, chloride 99, CO2 of 20, BUN 32, creatinine 1.79, glucose 116, lactic acid 3.7, magnesium 1.7. BNP 4600, troponin 0.46. Ammonia level less than 10. CBC: W BC 12.8, hemoglobin 12.5, hematocrit 38, platelet count 131, 6 bands noted. UA: 20-50 bacteria, 10- 20 wbc's, 3+ blood. Microbiology data is pending. Impression: 1.Acute kidney injury. 2.Septic shock. 3.Altered mental status. 4.Electrolyte abnormalities. 5.Possible non-ST elevation myocardial infarction. Plan: Agree with continuing IV fluids at current rate. Monitor strict input and output. Place Fole y catheter if needed for adequate output measuring. Continue IV pressors. Maintain MAP over 70. Co ntinue fluid resuscitation per protocols. Followup COVID testing. NSAIDs are contraindicated. Avoid iodinated contrast if possible. Renal dose all medications and av oid any nephrotoxins. We will continue to follow. /MARLENY Voice ID: [id number] Report ID: [id number]
[2019-06-28] MEDS: NA CHLORIDE 0.9% 1,000 ML IV SCH ×2 (01:34→12:03)
--- NOTE | 2019-06-28 04:00 | P.HP ---
Certification for Inpatient Patient admitted to: Inpatient With expected LOS: >2 Midnights Patient will require the following post-hospital care: None Practitioner: I am a practitioner with admitting privileges, knowledge of patient current condition, hospital course, and medical plan of care. Services: Services provided to patient in accordance with Admission requirements found in Title 42 Section 412.3 of the Code of Federal Regulations Patient History Date of Service: 06/27/19 Reason for admission: Septic shock History of Present Illness: Patient is a 79-year-old gentleman who came to the hospital with confusion. Patient has a history of cardiac valve surgery, as well as Parkinson's disease. Patient also has a history of hemochromatosis. Patient has been doing well postoperatively except for the fact that he has been dealing with thrush until yesterday. Patient was having fevers at home and the family brought him into the emergency room because he was not acting like himself. He had also been falling quite a bit as well. Patient also has not been eating well and has generalized weakness. Patient decided to come into the hospital for further evaluation. Patient also had leukocytosis and lactic acidosis. Patient has some acute renal insufficiency. Patient with temp of a 101.5. Unable to find the source as patient's chest x-ray is negative and spinal fluid is unremarkable. Patient will be admitted to the hospital for further evaluation. Allergies seasonal allergies Allergy (Uncoded 11/03/14 20:03) Unknown Home Medications: Atorvastatin Calcium [Lipitor*] 1 tab PO BEDTIME 06/27/19 Carbidopa/Levodopa 25-100 [Sinemet 25-100*] 1 tab PO Q4H 06/27/19 Carvedilol [Coreg] 1 tab PO BID 06/27/19 Lisinopril [Zestril] 1 tab PO DAILY 06/27/19 Montelukast Sodium [Singulair] 1 tab PO BEDTIME 06/27/19 Nystatin Oint [Mycostatin 100 Mu/Gm Oint*] 1 appl TOP BID 06/27/19 - Past Medical/Surgical History Has patient received pneumonia vaccine in the past: Yes Diabetic: No -: Hemochromatosis -: Hypertension -: Ataxia -: Recent heart valve surgery - Family History Father Family History: Reviewed- Non-Contributory - Social History Smoking Status: Never smoker Alcohol use: No CD- Drugs: No Caffeine use: No Place of Residence: Home Review of Systems is unable to be obtained Physical Examination - Vital Signs Temperature: 99.2 F Blood Pressure: 109/57 Pulse: 92 Respirations: 15 Pulse Ox (%): 100 - Physical Exam General: Alert, Oriented x1, Mild distress, Confused HEENT: Atraumatic, PERRLA, Mucous membr. moist/pink, EOMI, Sclerae nonicteric Neck: Supple, 2+ carotid pulse no bruit, No LAD, Without JVD or thyroid abnormality Respiratory: Clear to auscultation bilaterally, Normal air movement Cardiovascular: Regular rate/rhythm, Normal S1 S2, Systolic murmur Gastrointestinal: Normal bowel sounds, Soft and benign, Non-distended, No tenderness Musculoskeletal: No clubbing, No swelling, No tenderness Integumentary: No rashes Neurological: Sensation intact, Cranial nerves 3-12 intact, Abnormal gait, Abnormal speech, Abnormal strength, Abnormal affect Lymphatics: No axilla or inguinal lymphadenopathy - Studies Microbiology Data (last 24 hrs): 06/27/19 03:29 Blood - Blood Anaerobic Blood Culture - Final 06/27/19 04:45 Cerebral Spinal Fluid Gram Stain - Final 06/27/19 04:45 Cerebral Spinal Fluid CSF Bacterial Antigens (Tube 1) - Final 06/27/19 00:35 Nasopharnyx Influenza Type A Antigen Screen - Final 06/27/19 00:35 Nasopharnyx Influenza Type B Antigen Screen - Final Assessment & Plan - Problems (Diagnosis) (1) Septic shock Current Visit: Yes Status: Acute (2) Parkinsons disease Current Visit: Yes Status: Acute (3) Status post heart valve repair Current Visit: Yes Status: Acute (4) Hemochromatosis Current Visit: Yes Status: Acute (5) Hypertension Current Visit: Yes Status: Acute (6) Acute kidney injury Current Visit: Yes Status: Acute (7) Elevated troponin Current Visit: Yes Status: Acute - Plan Plan: 1. IV antibiotics 2. IV hydration 3. Continue monitoring labs closely including LFTs 4. Check iron studies 5. Monitor cardiac status closely 6. Monitor renal function closely 7. Check echocardiogram 8. Renal ultrasound and renal function worsens 9. GI and DVT prophylaxis Discharge Plan: Home Plan to discharge in: Greater than 2 days - Advance Directives Does patient have a Living Will: Yes Does patient have a Durable POA for Healthcare: Yes - Code Status/Comfort Care Code Status Assessed: Yes Code Status: Do Not Attempt Resuscitat Critical Care: Yes Time Spent Managing PTS Care (In Minutes): 60
[2019-06-28 05:15] LABS: Absolute Lymphocytes (CBC) 0.4 K/uL (0.7-4.9); Basophils % 0.1 % (0-1.3); Hematocrit 32.4 % (39.6-49.0); RBC Red Blood Cell Count 3.35 M/uL (4.33-5.43)
[2019-06-28 05:16] LABS: Protime INR 1.17
[2019-06-28 05:29] LABS: Albumin 2.2 g/dL (3.4-5.0); Bilirubin Total 0.3 mg/dL (0.2-1.0); Magnesium 2.2 mg/dL (1.8-2.4); Phosphorus 2.9 mg/dL (2.5-4.9); Potassium 4.3 mmol/L (3.5-5.1); Protein, Total 5.7 g/dL (6.4-8.2)
[2019-06-28 05:40] LABS: Troponin I 0.82 ng/mL (0.0-0.045)
[2019-06-28] MEDS: ACETAMINOPHEN 500 MG TAB PO PRN (05:52)
[2019-06-28] MEDS: Levofloxacin500mg IV 500 MG/100 ML BAG IV SCH (05:52)
[2019-06-28 06:43] LABS: Platelet Estimate DECR; Urine White Blood Cell Casts OK
[2019-06-28 06:44] LABS: Blood Morphology Comment NOT SEEN (NOT SEEN)
[2019-06-28] MEDS ORDERED: NA CHLORIDE 0.9% 500 ML IV ONE (07:54)
[2019-06-28] MEDS: THIAMINE 200 MG/2 ML INJ IVP SCH (08:06)
[2019-06-28] MEDS: FAMOTIDINE 20 MG/2 ML VIAL IV SCH (08:06)
[2019-06-28] MEDS: HYDROCORTISONE SUC 100 MG INJ IV SCH ×2 (08:06→20:28)
[2019-06-28] MEDS: ENOXAPARIN 40 MG/0.4 ML SQ SCH (08:25)
--- NOTE | 2019-06-28 12:30 | P.PN ---
Subjective Date of Service: 06/28/19 Primary Care Provider: Dr. Pandya Chief Complaint: Septic shock Subjective: Other (Patient still with fatigue. Patient appears to be at his baseline. Blood pressure still low.) Physical Examination - Vital Signs Temperature: 99.2 F Blood Pressure: 88/50 Pulse: 89 Respirations: 18 Pulse Ox (%): 100 - Physical Exam General: Alert, Cooperative HEENT: Atraumatic Neck: Supple Respiratory: Clear to auscultation bilaterally, Normal air movement Cardiovascular: Normal pulses, Regular rate/rhythm Gastrointestinal: Normal bowel sounds, Soft and benign, Non-distended Neurological: Normal strength at 5/5 x4 extr, Normal tone, Normal affect - Studies Microbiology Data (last 24 hrs): 06/27/19 04:45 Cerebral Spinal Fluid Gram Stain - Final 06/27/19 03:29 Blood - Blood Anaerobic Blood Culture - Final Medications List Reviewed: Yes (takes Coreg, Lisinopril, Pravastatin, Carbidopa/levodopa, Singulair) Assessment & Plan Discharge Plan: Home Plan to discharge in: Greater than 2 days Physician Review Additional Text: Impression: Fever, Fatigue secondary to Septic Shock with toxic encephalopathy etiology unknown Acute renal failure likely related to above Elevated trop lilkely cardiac strain with recent heart valve replacement in March Hx of HTN Hyperlipidemia Ataxia with history of cerebral palsy Hyperlipidemia Seasonal allergies Plan: Fever, Fatigue secondary to Septic Shock with toxic encephalopathy etiology unknown: Continue with Sepsis protocol with IV fluids and antibiotic therapy. Patient currently on vancomycin and Levaquin. Will provide IV fluid bolus. Continue with Levophed and wean off. So far lab indicates COVID negative, CSF culture negative, influenza test negative, blood culture 1/4 shows Gram positive Cocci suspect contaminant, and urine culture shows no growth. Spoke with family yesterday. Patient has ataxia with underlying cerebral palsy. Patient also hard of hearing. Patient had recent heart valve replaced in March. Will need to rule out infection from this. Echocardiogram pending. Case discussed with cardiology yesterday. Also spoke to Nephrology who has taking care the patient extensively yesterday. Consultations include: Renal/PCP-Dr. Pandya, Cardiology-Dr. Sloan, and Pulmonary/ICU-Dr. Manzo. Await further recommendations. Will update family. I will turn the service over to the hospitalist team tomorrow. I will go over the plan of care with him. Acute renal failure likely related to above: Overall improved. Continue to hold lisinopril. Continue with IV fluids. Wean off Levophed. Await further recommendations from nephrology. Elevated trop lilkely cardiac strain with recent heart valve replacement in March: Troponin elevated. Suspect cardiac strain. Cardiology has spoken to his shaker washer concerning heart valve. Will obtain echocardiogram to rule out infectious process. Cultures pending at this time. Await further recommendations from cardiology. Hx of HTN: Hold Lisinopril and Coreg. Monitor closely. Continue as above Hyperlipidemia:Restart medication. Ataxia with history of cerebral palsy: Restart medication. Patient appears to be at his baseline mental status state. Seasonal allergies: Hold medication. Time Spent Managing Pts Care (In Minutes): 55
[2019-06-28] MEDS: CARBIDOPA/LEVODOPA 25/100 TAB PO SCH ×3 (13:36→20:27)
[2019-06-28] MEDS: NOREPINEPHRINE 4 MG in D5W 250 ML IV PRN (14:05)
--- NOTE | 2019-06-28 14:35 | RAD REPORT ---
EXAM DESCRIPTION: Giovanny Single View06/28/2019 2:16 pm CLINICAL HISTORY: Chest pain COMPARISON: June 26 FINDINGS: The lungs appear clear of acute infiltrate. The heart is borderline enlarged. Postsurgica l changes involve the chest IMPRESSION: No acute abnormalities displayed
--- NOTE | 2019-06-28 18:48 | EKG ---
Test Date: 2019-06-27 Test Time: 03:42:44 Production Line: [employer] MEASUREMENT RESULTS: Intervals: Rate: 123 [place]: 192 QRSD: 122 QT: 316 QTc: 452 [place]: P: 54 [place]: 192 QRS: -65 T: 108 INTERPRETIVE STATEMENTS: Sinus tachycardia Left axis deviation Left bundle branch block Abnormal ECG Compared to ECG 06/27/2019 00:22:04 Left bundle-branch block now present Myocardial infarct finding no longer present ST (T wave) deviation no longer present Possible ischemia no longer present Electronically Signed On 06-28-19 18:44:42 CDT by Eh Sloan
[2019-06-28] MEDS: WATER FOR INJ,STERILE 10 ML ONE (20:26)
[2019-06-28] MEDS: ENSURE ENLIVE 237 ML CAN PO SCH (20:27)
[2019-06-28] MEDS: ATORVASTATIN 10 MG TAB PO SCH (20:27)
--- NOTE | 2019-06-28 20:42 | P.PN ---
Date of Service: 06/28/19 Vital Signs Temp Pulse Resp BP Pulse Ox 98.2 F 103 H 18 108/54 L 99 06/28/19 16:00 06/28/19 20:00 06/28/19 20:00 06/28/19 20:00 06/28/19 20:00 Medications Acetaminophen (Tylenol -Extra Strength) 500 mg PO Q4HP PRN PRN Reason: pain/fever Stop: 07/27/19 05:51 Last Admin: 06/28/19 05:52 Dose: 500 mg Documented by: Atorvastatin Calcium (Lipitor) 10 mg PO BEDTIME [facility] Stop: 07/28/19 21:01 Last Admin: 06/28/19 20:27 Dose: 10 mg Documented by: Carbidopa/Levodopa (Sinemet 25-100) 1 tab PO Q4H [facility] Stop: 07/28/19 13:01 Last Admin: 06/28/19 20:27 Dose: 1 tab Documented by: Enoxaparin Sodium (Lovenox 40 Mg Inj) 40 mg SQ DAILY [facility] Stop: 07/28/19 09:01 Last Admin: 06/28/19 08:25 Dose: 40 mg Documented by: Famotidine (Pepcid) 20 mg IV DAILY [facility]; Protocol Stop: 07/27/19 09:01 Last Admin: 06/28/19 08:06 Dose: 20 mg Documented by: Hydrocortisone Sodium Succinate (Solu-Cortef) 50 mg IV Q12HR [facility] Stop: 07/27/19 06:31 Last Admin: 06/28/19 20:28 Dose: 50 mg Documented by: Sodium Chloride (Ns 1000 Ml Ivbag) 1,000 mls @ 100 mls/hr IV .Q10H [facility] Stop: 07/27/19 06:01 Last Admin: 06/28/19 12:03 Dose: 1,000 mls Documented by: Levofloxacin/Dextrose (Levaquin 500 Mg/100 Ml Ivpb) 500 mg in 100 mls @ 100 mls/hr IV Q24H [facility]; Protocol Stop: 07/27/19 06:01 Last Admin: 06/28/19 05:52 Dose: 100 mls Documented by: Norepinephrine Bitartrate 4 mg (/ Dextrose) 254 mls @ 0 mls/hr IV PRN PRN; Protocol PRN Reason: Hemodynamic Parameters Stop: 07/27/19 07:45 Last Admin: 06/28/19 14:05 Dose: 254 mls Documented by: Vancomycin HCl 1.25 gm/ Sodium (Chloride) 250 mls @ 150 mls/hr IVPB Q36H [facility] Stop: 07/29/19 00:01 Nutritional Formula (Ensure Enlive) 237 ml PO BID [facility] Stop: 07/28/19 21:01 Last Admin: 06/28/19 20:27 Dose: 237 ml Documented by: Ondansetron HCl (Zofran) 4 mg IV Q4H PRN PRN Reason: NAUSEA / VOMITING Stop: 07/27/19 05:51 Sodium Chloride (Normal Saline Flush) 10 ml IV BID [facility] Stop: 07/27/19 09:01 Last Admin: 06/28/19 20:28 Dose: 10 ml Documented by: Thiamine HCl (Vitamin B-1) 100 mg IVP DAILY [facility] Stop: 07/27/19 09:01 Last Admin: 06/28/19 08:06 Dose: 100 mg Documented by: Microbiology Results 06/27/19 03:18 Blood - Blood Aerobic Blood Culture - Preliminary 06/27/19 03:18 Blood - Blood Blood Culture Gram Stain - Final 06/27/19 03:18 Blood - Blood Anaerobic Blood Culture - Preliminary No growth in 24 hours. 06/27/19 04:45 Cerebral Spinal Fluid Gram Stain - Final 06/27/19 04:45 Cerebral Spinal Fluid Culture & Sensitivity - Preliminary NORMAL UPPER RESPIRATORY DAPHNE GROWN. 06/27/19 01:47 Catheterized Urine Ramey Count - Preliminary <10,000 CFU/ML. 06/27/19 01:47 Catheterized Urine - Preliminary No growth. 06/27/19 03:29 Blood - Blood Aerobic Blood Culture - Preliminary 06/27/19 03:29 Blood - Blood Blood Culture Gram Stain - Preliminary 06/27/19 03:29 Blood - Blood Anaerobic Blood Culture - Final 06/27/19 04:45 Cerebral Spinal Fluid CSF Bacterial Antigens (Tube 1) - Final 06/27/19 00:35 Nasopharnyx Influenza Type A Antigen Screen - Final 06/27/19 00:35 Nasopharnyx Influenza Type B Antigen Screen - Final Assessment/ Plan: Nephrology CPS stable without CP or SOB. No acute events overnight. Limited IH/ ROS due to AMS. Vitals, medications, blood work and imaging reviewed in the chart. NAD. MMM. Neck supple. CTA. RRR. Soft Abd. No C/C/E. No rash. Awake. Abnormal Speech. A/ QUINN improving. Left renal cyst. Hyponatremia Acidosis Hypocalcemia Hypomagnesemia Hyperglycemia Anemia in chronic illness. Iron deficiency. Moderate malnutrition. Toxic metabolic encephalopathy. Septic Shock P/ Continue current POC and Medications. Change IVF 1/2NS. Pressor therapy as ordered. Continue abx. Monitor vanco level. Replete lytes as needed. AM labs. Daily weight. No NSAIDs. Case reviewed with Dr. Keyes. EXAM DESCRIPTION: Giovanny Single View06/28/2019 2:16 pm CLINICAL HISTORY: Chest pain COMPARISON: June 26 FINDINGS: The lungs appear clear of acute infiltrate. The heart is borderline enlarged. Postsurgical changes involve the chest IMPRESSION: No acute abnormalities displayed EXAM DESCRIPTION: US - Renal Ultrasound-Complete - 06/27/2019 7:47 pm CLINICAL HISTORY: Acute renal failure Flank pain COMPARISON: ABDOMINAL EXAM COMPLETE dated 04/10/2015 FINDINGS: Both kidneys are normal in size, shape and echotexture. The right kidney measures 10.3 x 4.7 x 4.1 cm. No hydronephrosis, focal mass or perinephric fluid. The left kidney measures 10.6 x 4.9 x 4.9 cm. No hydronephrosis, focal mass or perinephric fluid. 3.4 x 2.8 cm simple cyst cortex of left kidney. The urinary bladder is incompletely distended without gross abnormality seen. IMPRESSION: 3.4 cm simple cyst left kidney, otherwise unremarkable study.
[2019-06-28] MEDS: NACHLORIDE 0.45% 1,000 ML IV SCH (22:04)
--- NOTE | 2019-06-28 23:59 | PN ---
Date of Progress Note: 06/28/2019 Mr. Vazquez had come in with hypertension, altered mental status, possible pneumonia, syncope, and h ypotension. He had elevated D-dimer, BNP, troponin, creatinine, and white count. Today his blood pr essure is better at 100/69. He is in normal sinus rhythm. His O2 saturation is much improved at 100 % on 2 L of nasal cannula. He is being treated for pneumonia. The patient is do not resuscitate. E chocardiogram remains pending. We will continue treatment for his septic shock and toxic encephalopa thy. Mr. Vazquez has a history of aortic valve replacement, hypertension, dyslipidemia, normal azul naries. We will continue present regimen and see what the echo shows prior to making final decisions . NB/MODL Voice ID: [id number] Report ID: [id number]
[2019-06-29] MEDS ORDERED: VANCOMYCIN 1.25 GM in NA CHLORIDE 0.9% 250 ML IVPB SCH ×2
[2019-06-29] MEDS: CARBIDOPA/LEVODOPA 25/100 TAB PO SCH ×6 (00:06→19:43)
[2019-06-29 05:14] LABS: Absolute Lymphocytes (CBC) 0.4 K/uL (0.7-4.9); Basophils % 0.2 % (0-1.3); Hematocrit 28.3 % (39.6-49.0); Lymphocytes % 5.3 % (15.3-44.8); MPV 9.2 fL (7.6-11.3); RBC Red Blood Cell Count 2.96 M/uL (4.33-5.43)
[2019-06-29] MEDS: Levofloxacin500mg IV 500 MG/100 ML BAG IV SCH (05:18)
[2019-06-29 05:37] LABS: Albumin 2.2 g/dL (3.4-5.0); Bilirubin Total 0.3 mg/dL (0.2-1.0); Magnesium 2.2 mg/dL (1.8-2.4); Potassium 3.9 mmol/L (3.5-5.1); Protein, Total 5.5 g/dL (6.4-8.2)
[2019-06-29 06:15] VITALS: BMI 20.4
[2019-06-29] MEDS: NACHLORIDE 0.45% 1,000 ML IV SCH ×3 (07:49→19:42)
[2019-06-29] MEDS: THIAMINE 200 MG/2 ML INJ IVP SCH (08:16)
[2019-06-29] MEDS: FAMOTIDINE 20 MG/2 ML VIAL IV SCH (08:16)
[2019-06-29] MEDS: POTASSIUM 25 MEQ EFFERV TAB PO ONE ×2 (08:16→09:00)
[2019-06-29] MEDS: HYDROCORTISONE SUC 100 MG INJ IV SCH (08:16)
[2019-06-29] MEDS: WATER FOR INJ,STERILE 10 ML ONE (08:17)
[2019-06-29] MEDS ORDERED: WATER FOR INJ,STERILE 10 ML ONE (08:22)
[2019-06-29] MEDS: ENSURE ENLIVE 237 ML CAN PO SCH ×2 (09:00→19:43)
[2019-06-29] MEDS: ENOXAPARIN 40 MG/0.4 ML SQ SCH (09:00)
--- NOTE | 2019-06-29 10:50 | RAD REPORT ---
EXAM DESCRIPTION: RAD - Chest Single View - 06/29/2019 9:03 am CLINICAL HISTORY: R/O aspiration Chest pain. COMPARISON: Chest Single View dated 06/28/2019; Chest Single View dated 06/27/2019; CHEST SINGLE VIEW dated 10/25/2014 FINDINGS: Portable technique limits examination quality. The lungs are grossly clear. The heart is normal in size. Prosthetic aortic valve seen. No displaced fractures. IMPRESSION: No acute intrathoracic process suspected.
--- NOTE | 2019-06-29 11:40 | ECHO ---
HEIGHT: 5 ft 7 in WEIGHT: 130 lb 3.2 oz DATE OF STUDY: 06/29/[address]: Yonathan Keyes DO 2-DIMENSIONAL: YES M.MODE: YES DOPPLER: YES COLOR FLOW: YES TDS: NO PORTABLE: YES DEFINITY: NO BUBBLE STUDY: NO DIAGNOSIS: SEPTIC SHOCK CARDIAC HISTORY: CATHERIZATION: NO SURGERY: NO PROSTHETIC VALVE: YES PACEMAKER: NO MEASUREMENTS (cm) DIASTOLIC (NORMALS) SYSTOLIC (NORMALS) IVSd 0.8 (0.6-1.2) LA Diam 2.1 (1.9-4.0) LVEF 30% LVIDd 4.0 (3.5-5.7) LVIDs 3.5 (2.0-3.5) %FS 14% LVPWd 0.9 (0.6-1.2) Ao Diam 2.6 (2.0-3.7) 2 DIMENSIONAL ASSESSMENT: RIGHT ATRIUM: NORMAL LEFT ATRIUM: NORMAL RIGHT VENTRICLE: NORMAL LEFT VENTRICLE: NORMAL TRICUSPID VALVE: NORMAL MITRAL VALVE: NORMAL PULMONIC VALVE: NORMAL AORTIC VALVE: BIOPROSTHETIC PERICARDIAL EFFUSION: NONE AORTIC ROOT: NORMAL LEFT VENTRICULAR WALL MOTION: SEVERE GLOBAL HYPOKINESIS. DOPPLER/COLOR FLOW: NORMAL COMMENTS: SEVERE GLOBAL HYPOKINESIS. LEFT VENTRICULAR EJECTION FRACTION 30-35%. STATUS POST AORTIC VALVE REPLACEMENT, BIOPROSTHETIC WITH NORMAL FUNCTION. NO EFFUSION. NO THROMBUS. TECHNOLOGIST: Rita PORTER
--- NOTE | 2019-06-29 12:21 | P.PN ---
Subjective Date of Service: 06/29/19 Primary Care Provider: Dr. Pandya Chief Complaint: Transient episode of respiratory distress Subjective: Improving (Patient is doing well he developed transient episode of respiratory distress apparently has a cleft palate patient has no problems eating the time of my evaluation he was doing well patient has no fever for the past 48 hr) Review of Systems Unremarkable General: Weakness Physical Examination - Vital Signs Temperature: 99.8 F Blood Pressure: 120/61 Pulse: 92 Respirations: 19 Pulse Ox (%): 100 - Physical Exam General: Alert, In no apparent distress, Oriented x3 Respiratory: Clear to auscultation bilaterally Cardiovascular: No edema, Normal S1 S2 Gastrointestinal: Normal bowel sounds, Soft and benign - Studies Microbiology Data (last 24 hrs): 06/27/19 01:47 Catheterized Urine Allen Count - Final 06/27/19 01:47 Catheterized Urine - Final No growth. 06/27/19 03:18 Blood - Blood Blood Culture Gram Stain - Final 06/27/19 03:29 Blood - Blood Blood Culture Gram Stain - Final 06/27/19 03:29 Blood - Blood Anaerobic Blood Culture - Final 06/27/19 04:45 Cerebral Spinal Fluid Gram Stain - Final Medications List Reviewed: Yes (takes Coreg, Lisinopril, Pravastatin, Carbidopa/levodopa, Singulair) Assessment & Plan - Problems (Diagnosis) (1) Shock Current Visit: Yes Status: Resolved Plan: Patient is 79 years of age admitted with fever and hypotension is currently on Levophed drip lumbar puncture is negative for meningitis coronal virus test is pending this fever persists chest x-rays clear patient has renal insufficiency patient's troponin is also elevated mildly elevated PT lactic acid and BNP are also significantly elevated white count mildly elevated no evidence of urosepsis cultures are pending Dc Rocephin continue with vancomycin and levofloxacin According the family members he was pale weak infuse abdominal pain also there is a history of thrush room-air saturation satisfactory high risk for Crohn virus infection bolus with IV fluids (2) Fever Current Visit: Yes Status: Acute Plan: Patient admitted with fever source unknown LP negative no evidence of urinary tract infection cultures all negative speech therapy evaluation pending stable to be transferred to the floor (3) Congestive heart failure Current Visit: Yes Status: Acute Plan: Patient has severe global hypokinesis status post aortic wall replacement Qualifiers: Heart failure type: systolic Heart failure chronicity: chronic Qualified Code(s): I50.22 - Chronic systolic (congestive) heart failure
--- NOTE | 2019-06-29 13:33 | PN ---
Date of Progress Note: 06/29/2019 Subjective: Patient seen and examined. Chart reviewed and case discussed with RN. Patient denies a ny fevers overnight, otherwise doing well. Echocardiogram still pending. Code Status: Full. Medications: List reviewed. Physical Examination: Vital Signs: Temperature 99.8, heart rate 97, blood pressure 112/61, respirations 17, O2 95% on room air. General: Awake, alert, oriented x3. Elderly male, not in any acute distress, ill-appearing. CV: S1, S2. Regular rate and rhythm. Peripheral pulses present. RESPIRATORY: Moving air well bilaterally. No wheezing or stridor. Gastrointestinal: Abdomen is soft, nontender, nondistended. Positive bowel sounds. Extremities: No clubbing, cyanosis, or edema. Neuro: Nonfocal. Patient does have altered speech from his cerebral palsy. Laboratory Data: Sodium 139, potassium 3.9, chloride 111, CO2 of 22, BUN 21, creatinine 1.02, glucos e 131, lactate 1.1, calcium 7.2, magnesium 2.2, AST 99, ALT 11, albumin 2.2. WBC 7.7, H and H 9.4 an d 28.3, platelets 55. Blood cultures, staph coagulase positive 1/4 bottles, possible contaminant. C SF bacterial antigens are negative. Peripheral blood smear shows normocytic normochromic anemia, thr ombocytopenia, absolute neutrophilia with few bands and toxic changes. Assessment: A 79-year-old male with: 1.Fever, fatigue secondary to septic shock with toxic encephalopathy, unknown etiology. Continue sepsis protocol, IV fluids, antibiotics. Patient is on vancomycin and Levaquin. 1 bottle out of 4 positive for gram-positive cocci, possible contaminant. We will follow up on final ID and sensitiv ity. Patient is COVID negative. CSF cultures are negative. 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 Echocardiogram is pend ing. 2.Acute kidney injury secondary to above, improving. Creatinine now back to baseline. 3.Elevated troponin level likely from cardiac strain with recent heart valve replacement. Echocardi ogram pending at this time. 4.Thrombocytopenia, may be secondary to sepsis. Peripheral blood smear does not show any acute abno rmalities other than as listed above. We will hold Lovenox with platelets down to 55. 5.History of hypertension. Lisinopril and Coreg on hold. We will continue to monitor. 6.Mixed hyperlipidemia, stable. 7.Ataxia with history of cerebral palsy. Patient had baseline mental status. 8.Seasonal allergies. Plan to follow up on cultures. 9.Severe protein-calorie malnutrition. Albumin is 2.2. /MARLENY Voice ID: [id number] Report ID: [id number]
[2019-06-29] MEDS: carvediloL 3.125 MG TAB PO SCH (17:04)
[2019-06-29] MEDS: ATORVASTATIN 10 MG TAB PO SCH (19:43)
[2019-06-29] MEDS ORDERED: carvediloL 3.125 MG TAB PO SCH (21:00)
--- NOTE | 2019-06-29 21:11 | P.PN ---
Date of Service: 06/29/19 Vital Signs Temp Pulse Resp BP Pulse Ox 98.5 F 97 H 18 125/69 98 06/29/19 16:52 06/29/19 16:52 06/29/19 16:52 06/29/19 16:52 06/29/19 16:52 Medications Acetaminophen (Tylenol -Extra Strength) 500 mg PO Q4HP PRN PRN Reason: pain/fever Stop: 07/27/19 05:51 Last Admin: 06/28/19 05:52 Dose: 500 mg Documented by: Atorvastatin Calcium (Lipitor) 10 mg PO BEDTIME [facility] Stop: 07/28/19 21:01 Last Admin: 06/29/19 19:43 Dose: Not Given Documented by: Carbidopa/Levodopa (Sinemet 25-100) 1 tab PO Q4H [facility] Stop: 07/28/19 13:01 Last Admin: 06/29/19 19:43 Dose: Not Given Documented by: Carvedilol (Coreg) 3.125 mg PO BID 6AM 6PM [facility] Stop: 07/29/19 18:01 Last Admin: 06/29/19 17:04 Dose: Not Given Documented by: Enoxaparin Sodium (Lovenox 40 Mg Inj) 40 mg SQ DAILY [facility] Stop: 07/28/19 09:01 Last Admin: 06/29/19 09:00 Dose: Not Given Documented by: Norepinephrine Bitartrate 4 mg (/ Dextrose) 254 mls @ 0 mls/hr IV PRN PRN; Protocol PRN Reason: Hemodynamic Parameters Stop: 07/27/19 07:45 Last Admin: 06/28/19 14:05 Dose: 254 mls Documented by: Sodium Chloride (Sodium Chloride 0.45%) 1,000 mls @ 100 mls/hr IV .Q10H [facility] Stop: 07/29/19 08:27 Last Admin: 06/29/19 19:42 Dose: 1,000 mls Documented by: Nutritional Formula (Ensure Enlive) 237 ml PO BID [facility] Stop: 07/28/19 21:01 Last Admin: 06/29/19 19:43 Dose: Not Given Documented by: Ondansetron HCl (Zofran) 4 mg IV Q4H PRN PRN Reason: NAUSEA / VOMITING Stop: 07/27/19 05:51 Sodium Chloride (Normal Saline Flush) 10 ml IV BID [facility] Stop: 07/27/19 09:01 Last Admin: 06/29/19 19:43 Dose: 10 ml Documented by: Thiamine HCl (Vitamin B-1) 100 mg IVP DAILY [facility] Stop: 07/27/19 09:01 Last Admin: 06/29/19 08:16 Dose: 100 mg Documented by: Microbiology Results 06/27/19 01:47 Catheterized Urine Allen Count - Final 06/27/19 01:47 Catheterized Urine - Final No growth. 06/27/19 03:18 Blood - Blood Aerobic Blood Culture - Preliminary 06/27/19 03:18 Blood - Blood Blood Culture Gram Stain - Final 06/27/19 03:18 Blood - Blood Anaerobic Blood Culture - Preliminary No growth in 24 hours. 06/27/19 03:29 Blood - Blood Aerobic Blood Culture - Preliminary 06/27/19 03:29 Blood - Blood Blood Culture Gram Stain - Final 06/27/19 03:29 Blood - Blood Anaerobic Blood Culture - Final 06/27/19 04:45 Cerebral Spinal Fluid Gram Stain - Final 06/27/19 04:45 Cerebral Spinal Fluid Culture & Sensitivity - Preliminary NORMAL UPPER RESPIRATORY DAPHNE GROWN. 06/27/19 04:45 Cerebral Spinal Fluid CSF Bacterial Antigens (Tube 1) - Final 06/27/19 00:35 Nasopharnyx Influenza Type A Antigen Screen - Final 06/27/19 00:35 Nasopharnyx Influenza Type B Antigen Screen - Final Assessment/ Plan: Nephrology CPS worse this morning with dyspnea and hypoxia concerning for aspiration. No acute events overnight. Limited IH/ ROS due to AMS. Vitals, medications, blood work and imaging reviewed in the chart. NAD. MMM. Neck supple. BL rhonchi. RRR. Soft Abd. No C/C/E. No rash. Awake. Abnormal Speech. A/ QUINN improving. Left renal cyst. Hyponatremia Acidosis Hypocalcemia Hypomagnesemia Hyperglycemia Anemia in chronic illness. Iron deficiency. Moderate malnutrition. Toxic metabolic encephalopathy. Septic Shock P/ Continue current POC and Medications. Discontinue IVF. Pressor therapy as needed. Continue abx. Monitor vanco level. Replete lytes as needed. Speech therapy evaluation for aspiration risk. AM labs. Daily weight. No NSAIDs. EXAM DESCRIPTION: [place] Single View06/28/2019 2:16 pm CLINICAL HISTORY: Chest pain COMPARISON: June 26 FINDINGS: The lungs appear clear of acute infiltrate. The heart is borderline enlarged. Postsurgical changes involve the chest IMPRESSION: No acute abnormalities displayed EXAM DESCRIPTION: US - Renal Ultrasound-Complete - 06/27/2019 7:47 pm CLINICAL HISTORY: Acute renal failure Flank pain COMPARISON: ABDOMINAL EXAM COMPLETE dated 04/10/2015 FINDINGS: Both kidneys are normal in size, shape and echotexture. The right kidney measures 10.3 x 4.7 x 4.1 cm. No hydronephrosis, focal mass or perinephric fluid. The left kidney measures 10.6 x 4.9 x 4.9 cm. No hydronephrosis, focal mass or perinephric fluid. 3.4 x 2.8 cm simple cyst cortex of left kidney. The urinary bladder is incompletely distended without gross abnormality seen. IMPRESSION: 3.4 cm simple cyst left kidney, otherwise unremarkable study.
[2019-06-30] MEDS ORDERED: VANCOMYCIN 1.25 GM in NA CHLORIDE 0.9% 250 ML IVPB SCH ×2
[2019-06-30] MEDS: CARBIDOPA/LEVODOPA 25/100 TAB PO SCH ×6 (00:18→21:03)
[2019-06-30] MEDS: carvediloL 3.125 MG TAB PO SCH ×2 (05:07→18:11)
[2019-06-30 05:30] LABS: Absolute Lymphocytes (CBC) 0.4 K/uL (0.7-4.9); Basophils % 0.1 % (0-1.3); Hematocrit 31.3 % (39.6-49.0); Lymphocytes % 4.7 % (15.3-44.8); RBC Red Blood Cell Count 3.29 M/uL (4.33-5.43)
[2019-06-30 05:58] LABS: Albumin 2.4 g/dL (3.4-5.0); Bilirubin Total 0.4 mg/dL (0.2-1.0); Magnesium 2.1 mg/dL (1.8-2.4); Potassium 3.4 mmol/L (3.5-5.1); Protein, Total 5.9 g/dL (6.4-8.2)
--- NOTE | 2019-06-30 06:17 | PN ---
Date of Progress Note: 06/29/2019 History Of Present Illness: Mr. Vazquez has been followed for syncope, hypotension, possible pneumo pat, altered mental status, and hypertension. He has had a history of aortic valve replacement in past, but normal coronaries. I have been waiting for his echocardiogram, which was finally done. He is improving. He was being treated for septic shock and toxic encephalopathy. Echocardiogram whi ch was done showed an ejection fraction of 30%, severe global hypokinesis, but he had a normally func tioning bioprosthetic valve in the aortic location without any vegetation. There were no effusions, no thrombus, and no regurgitation as mentioned earlier. I would continue his present regimen, but he should be on CARA inhibitor, he should be on beta-blockers, he should be on aspirin, statin, as well as Lasix when he goes home and he will follow up with Dr. Gunderson, who is his primary educational assistant. His ejection fraction needs to be followed on a regular basis. He may be a candidate for a defibrill ator down the road. DEBBIE/MARLENY Voice ID: [id number] Report ID: [id number]
[2019-06-30] MEDS ORDERED: NA CHLORIDE 0.9% 250 ML ONE ×3 (06:50→14:20)
[2019-06-30] MEDS: THIAMINE 200 MG/2 ML INJ IVP SCH (09:00)
[2019-06-30] MEDS: ENSURE ENLIVE 237 ML CAN PO SCH (09:00)
--- NOTE | 2019-06-30 09:13 | RAD REPORT ---
EXAM DESCRIPTION: RAD - Barium Swallow Modified - 06/30/2019 9:04 am CLINICAL HISTORY: Aspiration/acute respiratory distress FINDINGS: LARYNGEAL PENTRATION: NOT CLEARED DEEP TO THE LEVEL OF THE VOCAL CORDS ASPIRATION: NO COUGH WITH THIN, NECTAR , HONEY AND MECHANICAL SOFT OTHER : THERE IS MILD REDUCED ORAL BOLUS MANIPULATION AND REDUCED TONGUE BASE RETRACTION . THERE IS SILENT ASPIRATION WITH TSP OF THIN, NECTAR , HONEY AND MECHANICAL SOFT. PENETRATION OF PUREED WAS DEEP TO THE LEVEL OF THE VOCAL CORDS AND WAS UNCLEARED. PENETRATED MATERIAL WAS LIKELY TO BE ASPIRATED BY WAY OF GRAVITY. THERE IS SIGNIFICANT IN THE VALLECULAE, PYRIFORMS, AND POSTERIOR PHARYNGEAL WALL THAT IS UNCLEARED . PT EXPECTORATED RESIDUAL PARTLY THROUGH ORAL CAVITY. PT WAS UNABLE TO PREFORM CHIN TUCK EFFECTIVELY A ND ASPIRATION OCCURRED WITH NECTAR VIA TSP Fluoroscopy time 8.2 minutes. Twenty-six fluoroscopic spot series obtained
[2019-06-30] MEDS: KCL 20 MEQ/100 mL IVPB 20 MEQ/100 ML BAG IV SCH ×2 (10:03→14:17)
--- NOTE | 2019-06-30 11:49 | RAD REPORT ---
EXAM DESCRIPTION: RAD - Hand Left 2 View - 06/30/2019 11:13 am CLINICAL HISTORY: Left hand pain FINDINGS: No fracture or dislocation is seen. A 2 millimeter linear density lies adjacent to the lateral aspect of the second PIP joint probably a calcification. A foreign body could also have a similar appearance The joint spaces are well-maintained. No bony erosion A limited two-view series was obtained
[2019-06-30] MEDS ORDERED: Levofloxacin500mg IV 500 MG/100 ML BAG IV SCH (12:00)
--- NOTE | 2019-06-30 16:08 | PN ---
Date of Progress Note: 06/30/2019 Subjective: Patient seen and examined. Chart reviewed and case discussed with RN and speech therapDaysi tiwari. Patient had modified barium swallow study today, however, was silently aspirating all form s of food and current recommendation is for n.p.o. Patient does appear to be somewhat confused terence red to yesterday. Medications: List reviewed. Physical Examination: Vital Signs: Temperature 98.3, heart rate 110, blood pressure 114/60, respirations 16, O2 of 94% on room air. General: Awake, alert, oriented x1. Does not appear to be in any acute distress. Elderly male, fra il, cachectic. CV: S1, S2. Sinus tachycardia. Peripheral pulses present. Respiratory: Moving air well bilaterally. No wheezing. Gastrointestinal: Abdomen is soft, nontender, nondistended. Positive bowel sounds. Extremities: No clubbing, cyanosis, or edema. Neurologic: Nonfocal. Abnormal speech due to cerebral palsy. Laboratory Data: Sodium 138, potassium 3.4, chloride 110, CO2 of 22, BUN 19, creatinine 0.94, glucos e 93, calcium 7.4, magnesium 2.1. AST 74, ALT 46, alkaline phosphatase 39, albumin 2.4. WBC 8.9, H and H 10.6 and 31.3, platelets 52, neutrophils 85%. Blood cultures growing out Staph aureus. Hand x-ray, no official report present. Assessment And Plan: A 79-year-old male with: 1.Fever, fatigue secondary to septic shock with toxic encephalopathy, unknown etiology. Patient is bacteremic. Patient is on IV antibiotics with Levaquin. CSF cultures, no growth to date. Patient d oes have ataxia with cerebral palsy. Endocarditis was ruled out as echocardiogram does not show any vegetation. Appreciate Cardiology input. 2.Acute kidney injury secondary to above, improving. Creatinine back to baseline. We will continue to monitor. Avoid NSAIDs. 3.Elevated troponin level, likely from cardiac strain with recent heart valve replacement. Echo hansen s show low EF. Patient recently until yesterday was on pressors. Therefore, we will be cautious abo ut adding beta-blockers, CARA inhibitors, and Lasix. We will start with low-dose lisinopril and monit or closely. 4.Thrombocytopenia. Platelets at 52. Continue to monitor. Continue with Lovenox on hold. 5.History of hypertension. Patient was hypotensive with shock, now blood pressure ranging to the on e teens to 150s. Low-dose Coreg and lisinopril have been restarted. 6.Mixed hyperlipidemia, stable. 7.Ataxia with history of cerebral palsy. Patient's mental status somewhat deteriorated today, only oriented to self. 8.Dysphagia. Patient having silent aspiration on modified barium swallow study. Patient is a magnolia date for speech therapy and improving his swallowing function, especially as his mental status improv es. 9.Severe protein-calorie malnutrition. Albumin is 2.4. We will talk to family. Discussed NG tube placement for the meantime. 10.Hypokalemia. We will replace and monitor. Plan: We will refer patient to rehab for PT, OT, and ST. Patient did have some swelling of his left hand, likely from infiltrated IV, which has been removed. We will check hand x-ray, 2 view. /MARLENY Voice ID: [id number] Report ID: [id number]
--- NOTE | 2019-06-30 17:08 | RAD REPORT ---
EXAM DESCRIPTION: RAD - Chest Single View - 06/30/2019 5:03 pm CLINICAL HISTORY: confirm dobhoff placement COMPARISON: Single view exam June 28 TECHNIQUE: AP portable chest image was obtained 06/30/2019 5:03 pm . FINDINGS: Feeding tube has been placed. Tip extends below the diaphragm and is in the proximal stoma ch. No abnormal bend or kink of the tubing. IMPRESSION: Feeding tube has been placed with the tip in the proximal most stomach.
[2019-06-30] MEDS: JEVITY 1.5 CAL LIQUID 1,000 ML BOT RTH SCH (18:00)
[2019-06-30] MEDS: MUPIROCIN 2% OINT 22GM TUBE TOP SCH (18:38)
--- NOTE | 2019-06-30 19:53 | PN ---
Date of Progress Note: 06/30/2019 Subjective: Patient was seen and examined. He denies any complaints. He wants to eat. Objective: Vital Signs: Have been reviewed and are stable. General Examination: He appears in no acute distress. Respiratory: Auscultation of lungs revealed occasional gurgling sounds, but other than that bilatera lly equal air entry. Abdomen: Soft. Extremities: Showed no evidence of edema. Laboratory Data: Showing potassium of 3.4. Renal function is otherwise stable. Albumin is down to 2.4. CBC showing anemia which is stable and white cell count is also stable. He currently remains n .p.o. for placement of Dobbhoff NG tube. Impression: 1.Acute on chronic renal insufficiency, currently with stable renal function. 2.Concern for aspiration pneumonia. The patient will need a feeding tube placed. 3.Hypertension, stable. 4.Hypokalemia, being replaced. Plan: Overall, the patient is doing okay at this time. His sepsis seems to be improving, but howeve r, he is at high risk of aspiration. The patient will get evaluated for feeding tube placement. Fredi al function is otherwise stable. Continue all other medications and plan of care. VV/MODL Voice ID: [id number] Report ID: [id number]
[2019-06-30] MEDS: ATORVASTATIN 10 MG TAB PO SCH (21:03)
[2019-06-30] MEDS ORDERED: KCL 20 MEQ/100 mL IVPB 20 MEQ/100 ML BAG IV SCH (23:00)
[2019-07-01] MEDS ORDERED: NA CHLORIDE 0.9% 250 ML ONE (00:39)
[2019-07-01] MEDS: CARBIDOPA/LEVODOPA 25/100 TAB PO SCH ×6 (00:52→20:49)
[2019-07-01 05:33] LABS: BUN Blood Urea Nitrogen 16 mg/dL (7-18); Bicarbonate 23 mmol/L (21-32); Glucose Level 143 mg/dL (74-106); Potassium 3.6 mmol/L (3.5-5.1); Sodium Level 139 mmol/L (136-145)
[2019-07-01] MEDS: carvediloL 3.125 MG TAB PO SCH ×2 (06:06→16:57)
[2019-07-01] MEDS: MUPIROCIN 2% OINT 22GM TUBE TOP SCH (08:32)
[2019-07-01] MEDS: lisinopriL 5 MG TAB PO SCH (08:33)
[2019-07-01] MEDS: THIAMINE 200 MG/2 ML INJ IVP SCH (08:35)
[2019-07-01] MEDS ORDERED: MUPIROCIN 2% OINT 22GM TUBE TOP SCH (09:00)
[2019-07-01] MEDS: CEFAZOLIN/SWI 2gm 2 GM/20 ML SYR IV SCH ×2 (11:59→16:58)
[2019-07-01] MEDS ORDERED: POTASSIUM 25 MEQ EFFERV TAB PO ONE (14:00)
--- NOTE | 2019-07-01 17:08 | PN ---
Date of Progress Note: 07/01/2019 Subjective: Patient seen and examined. Chart reviewed and case discussed with RN. Patient is somew hat lethargic today, but did work with Physical Therapy today, was very ataxic. Medications list rev iewed. Physical Examination: Vital Signs: Temperature 97.5, heart rate 87, blood pressure 103/55, respirations 18, O2 95% on room air. General: Awake, alert, oriented x2, not in any acute distress. Cardiovascular: S1, S2. Peripheral pulses present. Respiratory: Moving air well bilaterally. No w heezing or stridor Gastrointestinal: Abdomen is soft, nontender, nondistended. Positive bowel sound s. Extremities: No clubbing, cyanosis, or edema. Left hand erythema is improved. Laboratory Data: Sodium 139, potassium 3.6, chloride 110, CO2 of 23, BUN 16, creatinine 0.8, glucose 143, calcium 7.5. Blood cultures growing out Staph aureus. Assessment: A 79-year-old male with. 1.Bacteremia secondary to Staph, methicillin-susceptible Staphylococcus aureus. We will adjust anti biotics, continue for a total of 2 weeks. 2.Fever, fatigue, likely secondary to septic shock with toxic encephalopathy secondary to bacteremia . CSF cultures, no growth to date. 3.Cerebral palsy with ataxia, chronic. 4.Acute kidney injury secondary to above, improving. Creatinine back to baseline. We will continue to monitor. Avoid NSAIDs. Appreciate Nephrology input. 5.Elevated troponin level from cardiac strain with recent heart valve replacement, low EF. Patient tolerating low-dose beta-hugo and CARA inhibitor. Blood pressure is still very labile from 103 to 180. We will hold off on increasing lisinopril for now and hold off on Lasix. If blood pressure con tinues to improve, we will need Lasix. 6.Thrombocytopenia. We will repeat platelets in a.m. Lovenox on hold. We will continue SCDs. 7.Mixed hyperlipidemia, stable. 8.Dysphagia, silent aspiration on modified barium swallow. Dobbhoff has been placed for temporary f eeding. Continue working with speech therapist to improve swallowing function. Next of kin does not want PEG tube placement. 9.Severe protein-calorie malnutrition, continue protein supplementation. 10.Hypokalemia. We will replace and monitor. Plan: Pending rehab placement. Consider neurology lachelle. SA/MODL Voice ID: [id number] Report ID: [id number]
--- NOTE | 2019-07-01 20:01 | RAD REPORT ---
EXAM DESCRIPTION: MRI - Lumbar Spine Wo Con - 07/01/2019 7:46 pm CLINICAL HISTORY: Fall. Back injury. Radiculopathy COMPARISON: None. TECHNIQUE: Sagittal T1, T2 and STIR weighted sequences were obtained. Axial T1 and T2 sequences were obtained through the lumbar disc levels. FINDINGS: T1 weighted sequences demonstrate diminished signal throughout most of the lumbar vertebra probably red marrow reconversion. Compression deformities involve several lumbar vertebra which are old. Mild spondylosis L1-2, L2-3 and L3-4. Minimal narrowing of the neural foramina bilaterally L3-4 Disc bulge and osteophytes C4-5. Facet hypertrophy. Mild narrowing of the neural foramina bilaterally . Minimal narrowing of the thecal sac. Epidural lipomatosis L5-S1. Facet hypertrophy. Mild narrowing of the thecal sac and neural foramina IMPRESSION: Old compression fractures involving lumbar spine Spondylosis L4-5 resulting in foraminal stenosis
--- NOTE | 2019-07-01 20:07 | RAD REPORT ---
EXAM DESCRIPTION: MRI - C Spine Wo Cont - 07/01/2019 7:45 pm CLINICAL HISTORY: Ataxia COMPARISON: None TECHNIQUE: Magnetic resonance imaging of the cervical spine was obtained with coronal and sagittal r econstruction FINDINGS: C2-3 unremarkable Osteophytes and disc bulge C3-4 result in mild narrowing left neural foramina Small to moderate broad-based disc osteophyte complex C4-5 most prominent right posterolaterally resu lts in mild narrowing of the right anterior aspect of the thecal sac. Mild narrowing left neural fora mayte Small central disc osteophyte complex C5-6 mildly encroaches upon the thecal sac C6-7 and C7-T1 unremarkable The spinal cord is normal caliber and signal. No abnormal signal within the bones is noted. IMPRESSION: Small to moderate broad-based disc osteophyte complex C4-5 Small central disc osteophyte complex C5-6
[2019-07-01] MEDS: ACETAMINOPHEN 500 MG TAB PO PRN (20:48)
[2019-07-01] MEDS: JEVITY 1.5 CAL LIQUID 1,000 ML BOT RTH SCH (20:49)
[2019-07-01] MEDS: ATORVASTATIN 10 MG TAB PO SCH (20:49)
--- NOTE | 2019-07-01 21:45 | CON ---
Reason For Consultation: Consultation called because of ataxic gait and some persistent confusion. History Of Present Illness: Mr. Vazquez is a 79-year-old right-handed patient with Debby son disease and chronic dementia who is admitted to [facility] with reported septic shock. He was admitted on 06/27/2019. At my evaluation of the patient, he notes his gait problems have been persistent for many years. Review of the chart system showed admission in 2014 with an ataxic gait. It is reported that he has cerebral palsy, although his brain CT scan shows no evidence of any ence phalomalacia from brain injury, which it may be expected with such a condition. The patient does giv e a history of low back problems and has fallen several times with low back pain. His legs may get o ut without warning. He also has a diffuse weakness in both lower and upper extremities. He has not had a recent CT scan of his neck or lower back. The patient was somewhat sleepy at the time of my evaluation. He did require stimulation to answer a ppropriately and eventually was able to answer. At the time I saw him, the physical therapist was ev aluating him. The patient is on bed remained supine. He did do some exercises while in bed with cur ls of the biceps and extension of the triceps with shoulder abduction and he did do lower extremity r ana of motion exercises, but there was no ability to stand and maintain his weight. The patient act ually refused a transfer and just wanted to remain supine in bed. Past Medical History: Dyslipidemia, Parkinson disease, hypertension, ataxic gait, hemochromatosis. Past Surgical History: Recent heart valve surgery. Family History: Noncontributory. Social History: No alcohol, tobacco, or IV drug use. Patient lives at home with family. Medications: Atorvastatin at night, Sinemet 25/100 every 4 hours, carvedilol twice daily, Zestril da damion, Singulair at bedtime, and nystatin ointment apply topically twice daily. Review of Systems: Not reliable. Physical Examination: Vital Signs: Blood pressure 119/67, pulse up to 95 to 101, respiratory rate 16 to 20, temperature 98 .6. Oxygen saturation 96%. Weight 130 pounds, height 5 feet 7 inches, BMI 20.4. General: Mr. Vazquez is resting in bed with an NG tube in place. He has very poor dentition, zuleima alberto nearly all teeth and remaining teeth are in very poor condition. HEENT: He is, however, atraumatic and normocephalic. Oropharynx does appear pink and moist. Neck: Supple. Chest: Clear. Extremities: Show no significant edema or cyanosis. Abdomen: Soft. Neurologic: He is slightly drowsy, but easily arousable. Oriented to person, not exact place and or iented to situation. No date or day of the week. He does follow simple commands, but requires repea karen instructions and is only agreeable to bed mobility activities. He does not appear to have a foca l area of weakness in the arm or leg and did move both arms and legs equally, although with encourage ment. His tone is normal. Reflexes cannot be appreciated in the upper or lower extremities. He did appear to have a stocking-glove loss to light touch and temperature. Coordination could not be full y evaluated and gait cannot be fully evaluated. Laboratory Studies: White blood cell count 8.9, hemoglobin 10.6, hematocrit 31.3, platelets are 52. INR 1.17. Chemistries; sodium 139, potassium 3.5, chloride 110, carbon dioxide 22, BUN 16, creatini ne 0.8. His glucose was 143, calcium 7.5. Ammonia level 54. Serum folate is 11. Vitamin B12 level is 748. AST 74, ALT 46, alkaline phosphatase 39. Urinalysis on the 4 days ago showed bacteria 20 to 50, 2+ amorphous segmentation, 3+ blood, and did have a CSF study done on the showing pro tein elevated slightly to 69, glucose normal at 63. The white blood cells were 3, red blood cells 4, it is clear and colorless. Did have a vancomycin level of 3.2 on the and his COVID-19 test was negative. His head CT scan showed no acute ischemic or hemorrhagic change. The study was remarkabl e for mild bilateral periventricular and subcortical small vessel ischemic disease. No hemorrhage. No ischemic stroke. Chest x-ray shows feeding tube in place. Tip in the proximal part of the stomac h. His barium swallow evaluation showed he failed all consistencies and was put n.p.o. He is workin g with speech therapy as well. A hand x-ray on the left hand because of pain showed 2 mm linear dens ity adjacent to the lateral aspect of his 2nd proximal interphalangeal joint, likely due to calcifica tion, although foreign body may have similar appearance. Assessment: Mr. Vazquez is a 79-year-old patient with Parkinson disease and cognitive impairment, p ossibly secondary to Parkinson disease. He has a long history of an ataxic gait. He has loss of sen sation in a stocking-glove fashion, difficulty with proprioception in lower extremity, actually could not clearly tell where his toes were moved when evaluated. No reflexes in the lower and upper extre mities with normal tone. His differential diagnosis does include a sensory ataxia from perhaps a per ipheral neuropathy. No clear evidence that at all that he has cerebral palsy. He does not have incr eased tone and hyperreflexia as you might expect from cerebral palsy. B12 level is normal. Folate l evel also normal. His electrolyte abnormalities do not explain his gait instability and cerebrospina l fluid studies, essentially is unremarkable. Coronavirus disease 2019 test is negative. Plan: 1.The patient at this point is not a candidate for inpatient rehabilitation as he is not withstandin g any more than bed mobility exercises and does not want to attempt to stand and to ambulate. He jaspreet l benefit more from [facility], where there is less need for 3 hours of therapy on a daily basis . He will likely require a walker chronically probably lifelong and may have to use a wheelchair to reduce risk of falling for longer distances. A walker may be used for training for transfers at some point after his discharge and EMG nerve conduction study of his extremities may delineate his neurop athy's etiology, although at the time of my evaluation, he did seem to have some pain in his lower ex tremity. May consider gabapentin 100 mg twice daily to start for what likely may be neuropathic pain and he does have pending MRI of the cervical and lumbar spine, which are not likely to show any cord compression, but may show nerve root compression at the cervical and lumbar regions. He will be fol lowed once the studies are done. 2.May have DVT prophylaxis with Lovenox. Continue with Lipitor for dyslipidemia and continue his ca rbidopa-levodopa as indicated. LB/MODL Voice ID: [id number] Report ID: [id number]
--- NOTE | 2019-07-01 22:26 | P.PN ---
Date of Service: 07/01/19 Vital Signs Temp Pulse Resp BP Pulse Ox 98.2 F 101 H 20 119/67 96 07/01/19 16:00 07/01/19 16:57 07/01/19 16:00 07/01/19 16:57 07/01/19 16:00 Medications Acetaminophen (Tylenol -Extra Strength) 500 mg PO Q4HP PRN PRN Reason: pain/fever Stop: 07/27/19 05:51 Last Admin: 07/01/19 20:48 Dose: 500 mg Documented by: Atorvastatin Calcium (Lipitor) 10 mg PO BEDTIME GLADYS Stop: 07/28/19 21:01 Last Admin: 07/01/19 20:49 Dose: 10 mg Documented by: Carbidopa/Levodopa (Sinemet 25-100) 1 tab PO Q4H GLADYS Stop: 07/28/19 13:01 Last Admin: 07/01/19 20:49 Dose: 1 tab Documented by: Carvedilol (Coreg) 3.125 mg PO BID 6AM 6PM GLADYS Stop: 07/29/19 18:01 Last Admin: 07/01/19 16:57 Dose: 3.125 mg Documented by: Enoxaparin Sodium (Lovenox 40 Mg Inj) 40 mg SQ DAILY GLADYS Stop: 07/28/19 09:01 Last Admin: 06/29/19 09:00 Dose: Not Given Documented by: Cefazolin Sodium (Ancef 2 Gm/20 Ml Swi Ivp) 2 gm in 20 mls @ 600 mls/hr IV Q8HR GLADYS Stop: 07/31/19 11:01 Last Admin: 07/01/19 16:58 Dose: 20 mls Documented by: Lisinopril (Prinivil) 5 mg PO DAILY GLADYS Stop: 07/31/19 09:01 Last Admin: 07/01/19 08:33 Dose: 5 mg Documented by: Mupirocin (Bactroban 2% Ointment) 1 appl TOP DAILY GLADYS Stop: 07/30/19 19:01 Last Admin: 07/01/19 08:32 Dose: 1 michelle Documented by: Ondansetron HCl (Zofran) 4 mg IV Q4H PRN PRN Reason: NAUSEA / VOMITING Stop: 07/27/19 05:51 Sodium Chloride (Normal Saline Flush) 10 ml IV BID GLADYS Stop: 07/27/19 09:01 Last Admin: 07/01/19 20:49 Dose: 10 ml Documented by: Thiamine HCl (Vitamin B-1) 100 mg IVP DAILY GLADYS Stop: 07/27/19 09:01 Last Admin: 07/01/19 08:35 Dose: 100 mg Documented by: Microbiology Results 06/27/19 04:45 Cerebral Spinal Fluid Gram Stain - Final 06/27/19 04:45 Cerebral Spinal Fluid Culture & Sensitivity - Final No growth. 06/27/19 03:18 Blood - Blood Aerobic Blood Culture - Final Staph Aureus 06/27/19 03:18 Blood - Blood Blood Culture Gram Stain - Final 06/27/19 03:18 Blood - Blood Anaerobic Blood Culture - Preliminary No growth in 24 hours. 06/27/19 03:29 Blood - Blood Aerobic Blood Culture - Final Staph Aureus 06/27/19 03:29 Blood - Blood Blood Culture Gram Stain - Final 06/27/19 03:29 Blood - Blood Anaerobic Blood Culture - Final 06/27/19 01:47 Catheterized Urine [place] Count - Final 06/27/19 01:47 Catheterized Urine - Final No growth. 06/27/19 04:45 Cerebral Spinal Fluid CSF Bacterial Antigens (Tube 1) - Final 06/27/19 00:35 Nasopharnyx Influenza Type A Antigen Screen - Final 06/27/19 00:35 Nasopharnyx Influenza Type B Antigen Screen - Final Assessment/ Plan: Nephrology CPS stable without CP or SOB. Fatigue and lethargy. No acute events overnight. Vitals, medications, blood work and imaging reviewed in the chart. NAD. MMM. Neck supple. CTA. RRR. Soft Abd. No C/C/E. No rash. Somnolent. Abnormal Speech. NGT A/ QUINN improving. Left renal cyst. Hyponatremia Acidosis Hypocalcemia Hypomagnesemia Hyperglycemia Anemia in chronic illness. Iron deficiency. Moderate malnutrition. Toxic metabolic encephalopathy. Septic Shock. MSSA Bacteremia. P/ Continue current POC and Medications. Continue abx. Replete lytes as needed. AM labs. Daily weight. No NSAIDs. EXAM DESCRIPTION: Giovanny Single View06/28/2019 2:16 pm CLINICAL HISTORY: Chest pain COMPARISON: June 26 FINDINGS: The lungs appear clear of acute infiltrate. The heart is borderline enlarged. Postsurgical changes involve the chest IMPRESSION: No acute abnormalities displayed EXAM DESCRIPTION: US - Renal Ultrasound-Complete - 06/27/2019 7:47 pm CLINICAL HISTORY: Acute renal failure Flank pain COMPARISON: ABDOMINAL EXAM COMPLETE dated 04/10/2015 FINDINGS: Both kidneys are normal in size, shape and echotexture. The right kidney measures 10.3 x 4.7 x 4.1 cm. No hydronephrosis, focal mass or perinephric fluid. The left kidney measures 10.6 x 4.9 x 4.9 cm. No hydronephrosis, focal mass or perinephric fluid. 3.4 x 2.8 cm simple cyst cortex of left kidney. The urinary bladder is incompletely distended without gross abnormality seen. IMPRESSION: 3.4 cm simple cyst left kidney, otherwise unremarkable study.
[2019-07-02] MEDS: CARBIDOPA/LEVODOPA 25/100 TAB PO SCH ×6 (01:34→21:20)
[2019-07-02] MEDS: CEFAZOLIN/SWI 2gm 2 GM/20 ML SYR IV SCH ×3 (01:35→16:55)
[2019-07-02] MEDS: carvediloL 3.125 MG TAB PO SCH ×2 (05:25→16:55)
[2019-07-02 06:26] LABS: Potassium 3.7 mmol/L (3.5-5.1)
[2019-07-02] MEDS ORDERED: KCL 20 MEQ/100 mL IVPB 20 MEQ/100 ML BAG IV SCH (09:00)
[2019-07-02] MEDS: MUPIROCIN 2% OINT 22GM TUBE TOP SCH (09:02)
[2019-07-02] MEDS: lisinopriL 5 MG TAB PO SCH (09:03)
[2019-07-02] MEDS: THIAMINE 200 MG/2 ML INJ IVP SCH (09:04)
[2019-07-02] MEDS: GABAPENTIN 100 MG CAP FT SCH ×2 (09:09→21:18)
[2019-07-02] MEDS ORDERED: NA CHLORIDE 0.9% 250 ML ONE (09:25)
[2019-07-02 12:26] LABS: Absolute Lymphocytes (CBC) 0.6 K/uL (0.7-4.9); Basophils % 0.3 % (0-1.3); Hematocrit 32.3 % (39.6-49.0); MPV 10.2 fL (7.6-11.3)
--- NOTE | 2019-07-02 15:45 | PN ---
Date of Progress Note: 07/02/2019 Subjective: Patient seen and examined. Chart reviewed and case discussed with RN and medical power of assistant attorney general, Hayes Bello, who is the cousin. They still did not want a PEG tube. Case discussed with Dr. Brennan as well. Patient is not a candidate for rehab as he is very weak and not able to really ambulate much, is very wobbly when he stands. [facility] facility would be an option if they want a PEG tube; however, they do not. The family is leaning towards hospice, possibly at home versus at a facility. We will have social workers contact the family regarding hospice. Medications List: Reviewed. Physical Examination: Vital Signs: Temperature 98.7, heart rate 92, blood pressure 130/64, respirations 16, O2 of 96% on room air. General: Awake, alert, oriented x2. Elderly male, not in any acute distress. CV: S1, S2. Regular rate and rhythm. Peripheral pulses present. Respiratory: Moving air well bilaterally. No wheezing. No use of accessory muscles. Gastrointestinal: Abdomen is soft, nontender, nondistended. Positive bowel sounds. Extremities: No clubbing, cyanosis, or edema. Neurologic: Nonfocal. Patient does have altered speech, which is at baseline. Laboratory Data: Sodium 140, potassium 3.7, chloride 107, CO2 of 26, BUN 16, creatinine 0.86, glucose 148, calcium 7.3. WBC pending. Blood cultures growing out Staph aureus. Imaging Studies: Cervical and lumbar spine MRI: Lumbar spine shows old compression fractures involving lumbar spine, spondylosis resulting in foraminal stenosis at L4-L5. Cervical spine, small to moderate broad-based disk osteophyte complex, C4-5; small central disk osteophyte complex, C5-6. Assessment: A 79-year-old male with: 1. Bacteremia secondary to methicillin-susceptible Staphylococcus aureus. Continue Ancef. 2. Fever, fatigue, likely due to septic shock with toxic encephalopathy secondary to bacteremia. CSF cultures negative. No further fevers. 3. Cerebral palsy with ataxia. 4. Acute kidney injury secondary to above. Creatinine back to baseline. Continue to monitor. Avoid NSAIDs. Appreciate Nephrology input. 5. Elevated troponin level from cardiac strain with recent heart valve replacement. Patient has low EF. Patient is tolerating beta-hugo and CARA inhibitor. We will add low-dose Lasix. 6. Thrombocytopenia. Continue to monitor. 7. Lumbar and cervical spondylosis. Patient does have some neuropathy. We will start on gabapentin. Appreciate Neurology input. 8. Dysphagia. Dobbhoff in place for temporary feeding. Family does not want PEG tube placement. Options are to switch to hospice care with pleasure feeding. 9. Mixed hyperlipidemia, stable. 10. Severe protein-calorie malnutrition. We will continue with protein supplementation. 11. Hypokalemia, replaced. 12. Deep vein thrombosis prophylaxis with SCDs. Plan: Family is considering hospice care versus SNF placement, but patient would have to receive a PEG tube, which they are against. Family will call back with their decision. We will alert social workers. /MARLENY Voice ID: [id number] Report ID: [id number] DOMINGO
--- NOTE | 2019-07-02 21:08 | P.PN ---
Date of Service: 07/02/19 Vital Signs Temp Pulse Resp BP Pulse Ox 98.9 F 95 H 14 111/55 L 98 07/02/19 20:00 07/02/19 20:00 07/02/19 20:00 07/02/19 20:00 07/02/19 20:00 Medications Acetaminophen (Tylenol -Extra Strength) 500 mg PO Q4HP PRN PRN Reason: pain/fever Stop: 07/27/19 05:51 Last Admin: 07/01/19 20:48 Dose: 500 mg Documented by: Atorvastatin Calcium (Lipitor) 10 mg PO BEDTIME GLADYS Stop: 07/28/19 21:01 Last Admin: 07/01/19 20:49 Dose: 10 mg Documented by: Carbidopa/Levodopa (Sinemet 25-100) 1 tab PO Q4H GLADYS Stop: 07/28/19 13:01 Last Admin: 07/02/19 16:55 Dose: 1 tab Documented by: Carvedilol (Coreg) 3.125 mg PO BID 6AM 6PM GLADYS Stop: 07/29/19 18:01 Last Admin: 07/02/19 16:55 Dose: 3.125 mg Documented by: Enoxaparin Sodium (Lovenox 40 Mg Inj) 40 mg SQ DAILY GLADYS Stop: 07/28/19 09:01 Last Admin: 06/29/19 09:00 Dose: Not Given Documented by: Gabapentin (Neurontin) 100 mg FT BID GLADYS Stop: 08/01/19 09:01 Last Admin: 07/02/19 09:09 Dose: 100 mg Documented by: Cefazolin Sodium (Ancef 2 Gm/20 Ml Swi Ivp) 2 gm in 20 mls @ 600 mls/hr IV Q8HR GLADYS Stop: 07/31/19 11:01 Last Admin: 07/02/19 16:55 Dose: 20 mls Documented by: Lisinopril (Prinivil) 5 mg PO DAILY GLADYS Stop: 07/31/19 09:01 Last Admin: 07/02/19 09:03 Dose: 5 mg Documented by: Mupirocin (Bactroban 2% Ointment) 1 appl TOP DAILY GLADYS Stop: 07/30/19 19:01 Last Admin: 07/02/19 09:02 Dose: 1 michelle Documented by: Ondansetron HCl (Zofran) 4 mg IV Q4H PRN PRN Reason: NAUSEA / VOMITING Stop: 07/27/19 05:51 Sodium Chloride (Normal Saline Flush) 10 ml IV BID [facility] Stop: 07/27/19 09:01 Last Admin: 07/02/19 09:04 Dose: 10 ml Documented by: Thiamine HCl (Vitamin B-1) 100 mg IVP DAILY [facility] Stop: 07/27/19 09:01 Last Admin: 07/02/19 09:04 Dose: 100 mg Documented by: Microbiology Results 06/27/19 03:18 Blood - Blood Aerobic Blood Culture - Final Staph Aureus 06/27/19 03:18 Blood - Blood Blood Culture Gram Stain - Final 06/27/19 03:18 Blood - Blood Anaerobic Blood Culture - Final No growth in 5 days. 06/27/19 04:45 Cerebral Spinal Fluid Gram Stain - Final 06/27/19 04:45 Cerebral Spinal Fluid Culture & Sensitivity - Final No growth. 06/27/19 03:29 Blood - Blood Aerobic Blood Culture - Final Staph Aureus 06/27/19 03:29 Blood - Blood Blood Culture Gram Stain - Final 06/27/19 03:29 Blood - Blood Anaerobic Blood Culture - Final 06/27/19 01:47 Catheterized Urine [place] Count - Final 06/27/19 01:47 Catheterized Urine - Final No growth. 06/27/19 04:45 Cerebral Spinal Fluid CSF Bacterial Antigens (Tube 1) - Final 06/27/19 00:35 Nasopharnyx Influenza Type A Antigen Screen - Final 06/27/19 00:35 Nasopharnyx Influenza Type B Antigen Screen - Final Assessment/ Plan: Nephrology CPS stable without CP or SOB. Fatigue and lethargy. No acute events overnight. Vitals, medications, blood work and imaging reviewed in the chart. NAD. MMM. Neck supple. CTA. RRR. Soft Abd. No C/C/E. No rash. Somnolent. Abnormal Speech. NGT A/ QUINN improving. Left renal cyst. Hyponatremia Acidosis Hypocalcemia Hypomagnesemia Hyperglycemia Anemia in chronic illness. Iron deficiency. Moderate malnutrition. Toxic metabolic encephalopathy. Septic Shock. MSSA Bacteremia. P/ Continue current POC and Medications. Continue abx. Replete lytes as needed. Start Vitamin D. AM labs. Daily weight. No NSAIDs. Case reviewed with Dr. Pernell. EXAM DESCRIPTION: RADChest Single View06/28/2019 2:16 pm CLINICAL HISTORY: Chest pain COMPARISON: June 26 FINDINGS: The lungs appear clear of acute infiltrate. The heart is borderline enlarged. Postsurgical changes involve the chest IMPRESSION: No acute abnormalities displayed EXAM DESCRIPTION: US - Renal Ultrasound-Complete - 06/27/2019 7:47 pm CLINICAL HISTORY: Acute renal failure Flank pain COMPARISON: ABDOMINAL EXAM COMPLETE dated 04/10/2015 FINDINGS: Both kidneys are normal in size, shape and echotexture. The right kidney measures 10.3 x 4.7 x 4.1 cm. No hydronephrosis, focal mass or perinephric fluid. The left kidney measures 10.6 x 4.9 x 4.9 cm. No hydronephrosis, focal mass or perinephric fluid. 3.4 x 2.8 cm simple cyst cortex of left kidney. The urinary bladder is incompletely distended without gross abnormality seen. IMPRESSION: 3.4 cm simple cyst left kidney, otherwise unremarkable study.
[2019-07-02] MEDS: ATORVASTATIN 10 MG TAB PO SCH (21:18)
[2019-07-02] MEDS: JEVITY 1.5 CAL LIQUID 1,000 ML BOT RTH SCH (21:21)
[2019-07-03] MEDS: CEFAZOLIN/SWI 2gm 2 GM/20 ML SYR IV SCH ×3 (00:36→17:00)
[2019-07-03] MEDS: CARBIDOPA/LEVODOPA 25/100 TAB PO SCH ×7 (00:36→21:27)
[2019-07-03 05:43] LABS: Absolute Lymphocytes (CBC) 0.6 K/uL (0.7-4.9); Basophils % 0.4 % (0-1.3); Hematocrit 30.5 % (39.6-49.0); Lymphocytes % 7.4 % (15.3-44.8); RBC Red Blood Cell Count 3.24 M/uL (4.33-5.43)
[2019-07-03] MEDS: carvediloL 3.125 MG TAB PO SCH ×2 (05:43→16:56)
[2019-07-03] MEDS: THIAMINE 200 MG/2 ML INJ IVP SCH (10:08)
[2019-07-03] MEDS: VITAMIN D 5,000 UNIT CAP PO SCH (10:08)
[2019-07-03] MEDS: CALCITROL 0.25 MCG CAP PO SCH (10:08)
[2019-07-03] MEDS: lisinopriL 5 MG TAB PO SCH (10:09)
[2019-07-03] MEDS: MUPIROCIN 2% OINT 22GM TUBE TOP SCH (10:09)
[2019-07-03] MEDS: GABAPENTIN 100 MG CAP FT SCH ×2 (10:09→21:27)
--- NOTE | 2019-07-03 11:30 | DS ---
Date of service 07/03/2019 Consultants: Dr. Rooney with Nephrology, Dr. Banuelos with Nephrology, Dr. Manzo with Pulmonology, Dr. Sloan with Cardiology, and Dr. Brennan with Neurology as well as Dr. Thayer with Nephrology. Admitting Diagnoses: 1. Septic shock. 2. Parkinson disease. 3. Status post heart valve repair. 4. Hemochromatosis. 5. Hypertension. 6. Acute kidney injury. 7. Elevated troponin. Discharge Diagnoses: 1. Sepsis, resolved. 2. Bacteremia secondary to methicillin-susceptible Staphylococcus aureus. 3. Fever and fatigue, resolved, secondary to sepsis and bacteremia. 4. Toxic encephalopathy, resolved, back to baseline. 5. Cerebral palsy with ataxia, chronic. 6. Acute kidney injury secondary to sepsis, improved. 7. Elevated troponin level from cardiac strain with recent heart valve replacement. Echo normal, no vegetation. 8. Thrombocytopenia, improved. 9. Patient under investigation for coronavirus disease 2019; test was negative. 10. 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 11. Dysphagia, unable to tolerate any feeds without risk of silent aspiration. 12. Mixed hyperlipidemia. 13. Severe protein-calorie malnutrition, improving. 14. Hypokalemia replaced. Hospital Course: Patient is a 79-year-old gentleman, comes in with confusion, has history of cardiac valve surgery, Parkinson disease, apparent cerebral palsy with ataxia, hemochromatosis, hypertension, came in with confusion and falls, not eating well. Patient was found to have sepsis, elevated temperature, and elevated cardiac enzymes as well. Patient was started on broad-spectrum IV antibiotics. Workup including spinal tap was done. CSF culture did not show any growth. CSF bacterial antigens were negative. COVID testing was also done, which was negative. Blood cultures did grow out MSSA. Influenza screen was also negative as was the urine culture. Patient had some thrombocytopenia. Blood smear was done, which was negative. His fevers improved. His kidney function also was corrected. This was likely secondary to sepsis. He was seen by Cardiology for his elevated liver enzymes. Echocardiogram was also done, which showed EF of 30% with severe global hypokinesis. Patient initially was in the ICU. His echo did not show any thrombus or vegetation on the recent aortic valve replacement, which is bioprosthetic. The elevated troponin was thought to be due to cardiac strain and Cardiology did not recommend any further workup. Patient was also seen by Pulmonology. Patient overall improved. He was also seen by Neurology due to his altered mental status. Head CT scan did not show any acute changes. Due to his ataxia, lumbar and cervical spine MRIs were done, which showed some spondylosis. However, he would need further EMG studies to completely elucidate his reason for ataxia. He does have Parkinson's and cerebral palsy which was chronic. Patient was also having difficulty swallowing. Had some choking episodes. Therefore, speech therapist was consulted. Swallowing evaluation including modified barium swallow study showed signs of aspiration with all consistencies. Therefore, patient was placed as n.p.o. and Dobhoff was placed with feedings. Family was contacted for surrogate decision making due to patient's mental status. They did not wish to have a PEG tube placed. Patient was initially referred to rehab to continue with PT, OT, and ST, however, was unable to participate in physical therapy well enough to qualify. long term facility was not an option for the family as they did not wish to pursue PEG tube placement; therefore, patient's family chose hospice. They understand that hospice means care and comfort measures only and he will not be aggressively treated with any IVs including IV antibiotics or have any major procedures. He was accepted under hospice care at home. His blood pressure also improved. Initially, he was very hypotensive requiring pressors. Blood pressure now steady in the 120s to 130s. He was able to tolerate low-dose beta-hugo and CARA inhibitor. He will likely need low-dose Lasix as well. For his bacteremia, he will need to finish off course of clindamycin for a total of 2 weeks. Patient has already been on antibiotics for 5 days. Patient did have some swelling of his left hand likely due to IV infiltration. X-ray was done, did not show any acute changes. There was no identifiable trauma. Did show possible calcification. This suggested that foreign body could also have a similar appearance; however, there was no foreign body found. Erythema improved. He was encouraged to utilize his left arm and elevate it as necessary. Patient was then discharged home with hospice. Condition fair. Diet: Pleasure feeds. Patient is at risk of aspiration. However, as this is care and comfort, patient can have pleasure feeds. Medications: Finish up course of antibiotics for bacteremia. Physical Examination: General: Awake, alert, oriented x2. Elderly male, frail. CV: S1, S2. Respiratory: Moving air well bilaterally. Abdomen: Abdomen soft, nontender, nondistended. Positive bowel sounds. Extremities: No clubbing, cyanosis. Minimal edema on the left hand. Neurologic: Nonfocal. Patient does have altered speech due to his CP. Total time spent discharging patient was 41 minutes. /MARLENY Voice ID: [id number] Report ID: [id number] MTDOliva
[2019-07-03] MEDS: ACETAMINOPHEN 500 MG TAB PO PRN (17:00)
[2019-07-03] MEDS: JEVITY 1.5 CAL LIQUID 1,000 ML BOT RTH SCH (17:01)
[2019-07-03] MEDS: ATORVASTATIN 10 MG TAB PO SCH (21:27)
[2019-07-04] MEDS: ACETAMINOPHEN 500 MG TAB PO PRN (00:27)
[2019-07-04] MEDS: CEFAZOLIN/SWI 2gm 2 GM/20 ML SYR IV SCH ×3 (00:28→17:27)
[2019-07-04] MEDS: CARBIDOPA/LEVODOPA 25/100 TAB PO SCH ×7 (00:28→19:20)
[2019-07-04] MEDS ORDERED: ACETAMINOPHEN 325 MG/SUPP PR PRN (00:42)
[2019-07-04] MEDS: carvediloL 3.125 MG TAB PO SCH ×2 (05:29→17:26)
[2019-07-04] MEDS: CALCITROL 0.25 MCG CAP PO SCH (09:00)
[2019-07-04] MEDS: GABAPENTIN 100 MG CAP FT SCH ×2 (09:00→19:20)
[2019-07-04] MEDS: lisinopriL 5 MG TAB PO SCH (09:00)
[2019-07-04] MEDS: VITAMIN D 5,000 UNIT CAP PO SCH (09:00)
[2019-07-04] MEDS: MUPIROCIN 2% OINT 22GM TUBE TOP SCH (09:56)
[2019-07-04] MEDS: THIAMINE 200 MG/2 ML INJ IVP SCH (09:57)
--- NOTE | 2019-07-04 14:24 | PN ---
Date of Progress Note: 07/04/2019 Subjective: Patient seen and examined. Chart reviewed and case discussed with RN. Patient pulled o ut his Dobbhoff yesterday, did have a low-grade fever of 100.1 overnight. Medications List: Reviewed. Physical Examination: Vital Signs: T-max 100.1, T current 99.1; heart rate 94; blood pressure 120/55; respirations 20; O2 93% on room air. General: Awake, alert, oriented x2. Elderly male, does not appear to be in any acute distress, some what ill appearing, frail. CV: S1, S2. Regular rate and rhythm. Peripheral pulses present. Respiratory: Moving air well bilaterally. No wheezing or stridor. No use of accessory muscles. Gastrointestinal: Abdomen is soft, nontender, nondistended. Positive bowel sounds. Extremities: No clubbing, cyanosis, or edema. Neurologic: Nonfocal. Laboratory Data: Sodium 137, potassium 4, chloride 103, CO2 of 28, BUN 16, creatinine 0.9, glucose 1 30, calcium 7.4. Labs from 07/03/2019, blood cultures growing out MSSA. CSF cultures, no growth to date. Assessment: A 79-year-old male with: 1.Sepsis, resolved, did have low-grade fever of 100.1 secondary to bacteremia. CSF cultures negativ e. COVID negative. 2.Bacteremia secondary to methicillin-susceptible Staphylococcus aureus. Continue with cefazolin. Plan is for discharge on clindamycin. 3.Fever and fatigue, resolved, secondary to above. 4.Toxic encephalopathy, resolved, back to baseline. 5.Cerebral palsy with ataxia, chronic. 6.Acute kidney injury secondary to sepsis, improved. We will continue to monitor creatinine level a nd avoid NSAIDs. 7.Elevated troponin level secondary to cardiac strain. Echo is normal. No vegetation. 8.Thrombocytopenia, improved. 9.Patient under investigation for COVID-19, negative. 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 Continue gabapentin. 11.Dysphagia. Patient has risk of silent aspiration, failed modified barium swallow study. Patient was getting Dobbhoff feeds; however, he pulled out his Dobbhoff as patient is going for hospice unde r respite care in a.m. We will leave Dobbhoff out for now. Since patient is going to be palliative care, he can have pleasure feeds. 12.Mixed hyperlipidemia. 13.Severe protein-calorie malnutrition, was receiving protein supplementation through NG tube. 14.Hypokalemia, replaced. 15.Deep vein thrombosis prophylaxis, Lovenox. 16.Systolic congestive heart failure, chronic. Patient tolerating low-dose CARA and beta-hugo. W ill need to be discharged on Lasix if blood pressure holds. 17.Parkinson disease, on Sinemet. Plan: Discharge to hospice under respite care, which cannot be arranged until Friday a.m. EDNA Voice ID: [id number] Report ID: [id number]
[2019-07-04] MEDS: ATORVASTATIN 10 MG TAB PO SCH (19:20)
[2019-07-05] MEDS: CEFAZOLIN/SWI 2gm 2 GM/20 ML SYR IV SCH ×3 (00:34→17:14)
[2019-07-05] MEDS: CARBIDOPA/LEVODOPA 25/100 TAB PO SCH ×6 (00:35→21:00)
[2019-07-05] MEDS: carvediloL 3.125 MG TAB PO SCH ×2 (05:14→17:12)
[2019-07-05] MEDS: lisinopriL 5 MG TAB PO SCH (09:00)
[2019-07-05] MEDS: VITAMIN D 5,000 UNIT CAP PO SCH (09:00)
[2019-07-05] MEDS: CALCITROL 0.25 MCG CAP PO SCH (09:00)
[2019-07-05] MEDS: GABAPENTIN 100 MG CAP FT SCH ×2 (09:00→21:00)
[2019-07-05] MEDS: THIAMINE 200 MG/2 ML INJ IVP SCH (09:22)
[2019-07-05] MEDS: MUPIROCIN 2% OINT 22GM TUBE TOP SCH (09:23)
--- NOTE | 2019-07-05 16:57 | P.PN ---
Subjective Date of Service: 07/05/19 Primary Care Provider: Dr. Pandya Chief Complaint: Transient episode of respiratory distress Subjective: Other (Patient stable at this time.) Physical Examination - Vital Signs Temperature: 99.4 F Blood Pressure: 123/59 Pulse: 89 Respirations: 16 Pulse Ox (%): 95 - Physical Exam General: Alert Neck: Supple Respiratory: Clear to auscultation bilaterally, Normal air movement Cardiovascular: Normal pulses, Regular rate/rhythm Gastrointestinal: Normal bowel sounds Neurological: Other (Patient stable this time.) - Studies Medications List Reviewed: Yes (takes Coreg, Lisinopril, Pravastatin, Carbidopa/levodopa, Singulair) Assessment & Plan Discharge Plan: Other (Inpatient hospice versus group home placement with hospice for respite) Physician Review Additional Text: Impression: Sepsis, resolved secondary to bacteremia Bacteremia secondary to methicillin-susceptible Staph aureus Fever and fatigue related to above Toxic encephalopathy resolved Cerebral palsy with ataxia chronic Acute kidney injury secondary to sepsis Elevated troponin secondary to cardiac strain Thrombocytopenia improved Dysphagia with risk of silent aspiration, failed modified barium swallow Mixed hyperlipidemia Severe protein calorie malnutrition Chronic systolic CHF Parkinson Plan: Case reviewed at length. Patient now with severe dysphagia with risk of silent aspiration. Hospitalist spoke to family yesterday and made the patient hospice. The patient at this time will enter hospice. Will discuss with case management and family about inpatient hospice verses hospice under respite at group home. Will case discussed at length with hospitalist yesterday. Will check to see if inpatient hospice is approved. Time Spent Managing Pts Care (In Minutes): 55
[2019-07-05] MEDS: D5 0.9 NS 1,000 ML with POTASSIUM CL 10 MEQ IV SCH ×2 (18:34)
[2019-07-05] MEDS: ATORVASTATIN 10 MG TAB PO SCH (21:00)
[2019-07-06] MEDS: CARBIDOPA/LEVODOPA 25/100 TAB PO SCH ×7 (01:00→21:59)
[2019-07-06] MEDS: CEFAZOLIN/SWI 2gm 2 GM/20 ML SYR IV SCH ×3 (01:09→17:18)
--- NOTE | 2019-07-06 02:27 | PN ---
Date of Progress Note: 07/06/2019 Subjective: Patient is seen at the bedside. No overnight events reported. The patient's mentation is at baseline. Denies any fevers, chills, chest pain, shortness of breath, nausea, vomiting, or tanya rrhea. The patient does state that he is hungry. Objective: Vital Signs: Blood pressure is 123/59, pulse 89, afebrile. General: No acute distress. Heart: Regular rate and rhythm. No murmurs, rubs, or gallops. Lungs: Grossly clear to auscultation. Abdomen: Soft, nontender, nondistended. Extremities: No significant edema. Laboratory Data: CBC: Hemoglobin 10.2, hematocrit 30.5. Serum chemistry: BUN and creatinine 16/0. 9, calcium is 7.4. Current medications were reviewed. Impression: 1.Acute kidney injury, resolved. 2.Severe dysphagia precluding p.o. intake. 3.Parkinson disease. 4.Gram-positive bacteremia. 5.Sepsis, resolved. Plan: Mr. Vazquez's mentation has improved. Given that the patient is able to make decisions, the patient did state that he would be agreeable to PEG tube. I have relayed that information to Dr. Jessica whiteside who will make arrangements again for swallow evaluation and possible PEG placement if necessary. I have also informed the family of the patient's decision and they are agreeable, however, are adam rned of the patient's long-term care with the feeding tube in place. We will ask Social Work and Conrad e Management's assistance in that regard for appropriate placement of the patient and further managem ent. Avoid all NSAIDs without contrast. We will continue to follow. /MODL Voice ID: [id number] Report ID: [id number]
[2019-07-06] MEDS: carvediloL 3.125 MG TAB PO SCH ×2 (05:08→17:18)
[2019-07-06] MEDS: lisinopriL 5 MG TAB PO SCH (09:00)
[2019-07-06] MEDS: VITAMIN D 5,000 UNIT CAP PO SCH (09:00)
[2019-07-06] MEDS: GABAPENTIN 100 MG CAP FT SCH ×2 (09:00→21:59)
[2019-07-06] MEDS: CALCITROL 0.25 MCG CAP PO SCH (09:00)
[2019-07-06] MEDS: D5 0.9 NS 1,000 ML with POTASSIUM CL 10 MEQ IV SCH ×2 (09:12)
[2019-07-06] MEDS: MUPIROCIN 2% OINT 22GM TUBE TOP SCH (09:13)
[2019-07-06] MEDS: THIAMINE 200 MG/2 ML INJ IVP SCH (09:14)
--- NOTE | 2019-07-06 10:49 | EKG ---
Test Date: 2019-07-02 Test Time: 21:19:01 Glass Inspector: RT Baptiste MEASUREMENT RESULTS: Intervals: Rate: 95 MD: QRSD: 128 QT: 448 QTc: 562 [place]: P: MD: QRS: -31 T: 92 INTERPRETIVE STATEMENTS: Wide QRS rhythm Left axis deviation Left bundle branch block Abnormal ECG Compared to ECG 06/27/2019 03:42:44 Uncertain supraventricular rhythm now present Sinus tachycardia no longer present Electronically Signed On 07-06-19 10:47:31 CDT by Eh Sloan
--- NOTE | 2019-07-06 13:04 | P.PN ---
Subjective Date of Service: 07/06/19 Primary Care Provider: Dr. Pandya Chief Complaint: Transient episode of respiratory distress Subjective: Other (Patient stable at this time. No complaints noted.) Physical Examination - Vital Signs Temperature: 98.1 F Blood Pressure: 125/62 Pulse: 94 Respirations: 18 Pulse Ox (%): 97 - Physical Exam General: Alert HEENT: Other (Patient with difficulty hearing) Neck: Supple Respiratory: Clear to auscultation bilaterally, Normal air movement Cardiovascular: Normal pulses, Regular rate/rhythm Gastrointestinal: Normal bowel sounds, Soft and benign, Non-distended Neurological: Normal speech, Normal strength at 5/5 x4 extr, Normal tone - Studies Medications List Reviewed: Yes (takes Coreg, Lisinopril, Pravastatin, Carbidopa/levodopa, Singulair) Assessment & Plan Discharge Plan: Other (jail with hospice) Plan to discharge in: 24 Hours Physician Review Additional Text: Impression: Sepsis, resolved secondary to bacteremia Bacteremia secondary to methicillin-susceptible Staph aureus Fever and fatigue related to above Toxic encephalopathy resolved Cerebral palsy with ataxia chronic Acute kidney injury secondary to sepsis Elevated troponin secondary to cardiac strain Thrombocytopenia improved Dysphagia with risk of silent aspiration, failed modified barium swallow Mixed hyperlipidemia Severe protein calorie malnutrition Chronic systolic CHF Parkinson Plan: Spoke with speech today. Patient failed speech evaluation. Patient still high risk for aspiration. Also spoke to family concerning recent speech evaluation. Patient desires to eat. Family is aware of this. Options of PEG tube placement was discussed with family and GI. GI recommends no PEG tube at this time as the patient will still have risk for aspiration and may pull out PEG tube. Family understands this and agrees that this may be very troublesome. Family at this time still once to pursue hospice but comfort feeding will be continued at this time. Will make arrangements for this. Will start with pureed diet. Patient will need frequent throat clearing. Patient will need to be monitored while eating with only tsp. Amounts of food. Also spoke to psychiatric social worker. Apparently patient will need to look at other option of [facility]. This was discussed in detail with family. Family will pursue other [facility] hospice plan of care. Time Spent Managing Pts Care (In Minutes): 55
--- NOTE | 2019-07-06 14:32 | RAD REPORT ---
EXAM DESCRIPTION: RAD - Barium Swallow Modified - 07/06/2019 2:23 pm CLINICAL HISTORY: Dysphagia COMPARISON: Barium Swallow Modified dated 06/30/2019 TECHNIQUE: The patient was given liquid, semi-solid and solid forms of barium. Lateral view fluorosc opic imaging was performed in conjunction with speech pathology service. FINDINGS: Laryngeal penetration - not cleared, deep to vocal cords with thin and nectar, possibly tr josé miguel aspiration of nectar. Aspiration - no cough - with honey pureed, and mechanical soft pharyngeal residue - significant - vallecular, pyriform, and posterior wall There is a delay in swallow onset of 2 - 9 seconds approximately. There is reduced base of tongue retraction, reduced laryngeal elevation and protraction and reduced e piglottic inversion and reduced contraction of the posterior pharyngeal wall. There are deep penetrations of thin and nectar via teaspoon that are uncleared. Trace aspiration suspected with nectar via teaspoon. Also, aspiration with honey, pureed, and mechanical soft. Residue in the vallecular, pyriforms, and posterior pharyngeal wall is significant and patient unable to elicit a reswallow consistently. Spill over of residue occurs into the laryngeal vestibule, resulting in penetration / aspiration. Aspiration was silent. Total fluoroscopy time: 7 minutes and 1 second
[2019-07-06] MEDS: ATORVASTATIN 10 MG TAB PO SCH (21:59)
[2019-07-07] MEDS: CEFAZOLIN/SWI 2gm 2 GM/20 ML SYR IV SCH ×3 (01:13→17:20)
[2019-07-07] MEDS: CARBIDOPA/LEVODOPA 25/100 TAB PO SCH ×6 (01:13→20:41)
[2019-07-07] MEDS: D5 0.9 NS 1,000 ML with POTASSIUM CL 10 MEQ IV SCH ×4 (01:13→14:41)
[2019-07-07] MEDS: carvediloL 3.125 MG TAB PO SCH ×2 (05:39→17:20)
[2019-07-07] MEDS: lisinopriL 5 MG TAB PO SCH (09:00)
[2019-07-07] MEDS: MUPIROCIN 2% OINT 22GM TUBE TOP SCH (09:00)
[2019-07-07] MEDS: CALCITROL 0.25 MCG CAP PO SCH (10:06)
[2019-07-07] MEDS: GABAPENTIN 100 MG CAP FT SCH ×2 (10:06→20:41)
[2019-07-07] MEDS: THIAMINE 200 MG/2 ML INJ IVP SCH (10:07)
[2019-07-07] MEDS: VITAMIN D 5,000 UNIT CAP PO SCH (10:11)
--- NOTE | 2019-07-07 15:40 | P.PN ---
Subjective Date of Service: 07/07/19 Primary Care Provider: Dr. Pandya Chief Complaint: Transient episode of respiratory distress Subjective: Doing well Physical Examination - Vital Signs Temperature: 98 F Blood Pressure: 107/58 Pulse: 96 Respirations: 18 Pulse Ox (%): 95 - Physical Exam General: Alert HEENT: Atraumatic Neck: Supple Respiratory: Clear to auscultation bilaterally, Normal air movement Cardiovascular: Normal pulses, Regular rate/rhythm Gastrointestinal: Normal bowel sounds, Soft and benign, Non-distended Neurological: Normal affect - Studies Medications List Reviewed: Yes (takes Coreg, Lisinopril, Pravastatin, Carbidopa/levodopa, Singulair) Assessment & Plan Discharge Plan: Assisted Plan to discharge in: 24 Hours Physician Review Additional Text: Impression: Sepsis, resolved secondary to bacteremia, urine culture positive for Staph aureus Fever and fatigue related to above Toxic encephalopathy resolved Cerebral palsy with ataxia chronic Acute kidney injury secondary to sepsis Elevated troponin secondary to cardiac strain Thrombocytopenia improved Dysphagia with risk of silent aspiration, failed modified barium swallow Mixed hyperlipidemia Severe protein calorie malnutrition Chronic systolic CHF Parkinson Plan: Sepsis, resolved secondary to bacteremia, urine culture positive for Staph aureus: Patient remains on IV antibiotic therapy. Will continue with medication as the patient is waiting to be sent to shelter on hospice. Spoke with family and social sciences lecturer. Family does not want PEG tube. Continue with comfort feeding. Family understands risks of aspiration. This was addressed in detail by speech. Will need to obtain COVID test in preparation for the patient to go to a shelter. Anticipate approval tomorrow to the shelter on hospice. Fever and fatigue related to above: Continue as above Toxic encephalopathy resolved: Continue with above plan of care. Cerebral palsy with ataxia chronic: Overall stable. Acute kidney injury secondary to sepsis: Continue with IV fluids until discharge. Elevated troponin secondary to cardiac strain: No further cardiac intervention required. Thrombocytopenia improved: Stable. Dysphagia with risk of silent aspiration, failed modified barium swallow: Patient at high risk for aspiration. This was addressed with family in detail. Family does not want PEG tube placed. They prefer to pursue hospice and comfort feeding. Continue with above her arrangements for the patient to go to shelter with hospice. Mixed hyperlipidemia: Continue medication Severe protein calorie malnutrition: Continue comfort feeding Chronic systolic CHF: Overall stable. Will monitor closely. Parkinson: Continue medication. Time Spent Managing Pts Care (In Minutes): 55
[2019-07-07] MEDS: ATORVASTATIN 10 MG TAB PO SCH (20:41)
[2019-07-08] MEDS: CEFAZOLIN/SWI 2gm 2 GM/20 ML SYR IV SCH ×3 (01:57→16:57)
[2019-07-08] MEDS: CARBIDOPA/LEVODOPA 25/100 TAB PO SCH ×6 (01:58→22:04)
[2019-07-08] MEDS: D5 0.9 NS 1,000 ML with POTASSIUM CL 10 MEQ IV SCH ×6 (04:56→16:56)
[2019-07-08] MEDS: carvediloL 3.125 MG TAB PO SCH ×2 (06:16→18:00)
[2019-07-08] MEDS: lisinopriL 5 MG TAB PO SCH (09:00)
[2019-07-08] MEDS: GABAPENTIN 100 MG CAP FT SCH ×2 (10:26→22:04)
[2019-07-08] MEDS: CALCITROL 0.25 MCG CAP PO SCH (10:27)
[2019-07-08] MEDS: VITAMIN D 5,000 UNIT CAP PO SCH (10:27)
[2019-07-08] MEDS: THIAMINE 200 MG/2 ML INJ IVP SCH (10:27)
[2019-07-08] MEDS: MUPIROCIN 2% OINT 22GM TUBE TOP SCH (10:28)
--- NOTE | 2019-07-08 13:48 | P.PN ---
Subjective Date of Service: 07/08/19 Primary Care Provider: Dr. Pandya Chief Complaint: Transient episode of respiratory distress Subjective: Doing well Physical Examination - Vital Signs Temperature: 98.6 F Blood Pressure: 102/52 Pulse: 94 Respirations: 18 Pulse Ox (%): 95 - Physical Exam General: Alert HEENT: Atraumatic Neck: Supple Respiratory: Clear to auscultation bilaterally, Normal air movement Cardiovascular: Normal pulses, Regular rate/rhythm Gastrointestinal: Normal bowel sounds Neurological: Normal speech, Normal strength at 5/5 x4 extr, Normal tone - Studies Medications List Reviewed: Yes (takes Coreg, Lisinopril, Pravastatin, Carbidopa/levodopa, Singulair) Assessment & Plan Discharge Plan: Residential Plan to discharge in: 24 Hours Physician Review Additional Text: Impression: Sepsis, resolved secondary to bacteremia, urine culture positive for Staph aureus Fever and fatigue related to above Toxic encephalopathy resolved Cerebral palsy with ataxia chronic Acute kidney injury secondary to sepsis Elevated troponin secondary to cardiac strain Thrombocytopenia improved Dysphagia with risk of silent aspiration, failed modified barium swallow Mixed hyperlipidemia Severe protein calorie malnutrition Chronic systolic CHF Parkinson Plan: Sepsis, resolved secondary to bacteremia, urine culture positive for Staph aureus: Patient remains on IV antibiotic therapy. Will continue with medication as the patient is waiting to be sent to senior living on hospice. Spoke with family and social worker clinical. Family does not want PEG tube. Continue with comfort feeding. Family understands risks of aspiration. This was addressed in detail by speech. Patient has tested negative for COVID. Current ly awaiting approval to go to senior living with hospice in place and comfort feeding. Fever and fatigue related to above: Continue as above Toxic encephalopathy resolved: Continue with above plan of care. Cerebral palsy with ataxia chronic: Overall stable. Acute kidney injury secondary to sepsis: Continue with IV fluids until discharge. Elevated troponin secondary to cardiac strain: No further cardiac intervention required. Thrombocytopenia improved: Stable. Dysphagia with risk of silent aspiration, failed modified barium swallow: Patient at high risk for aspiration. This was addressed with family in detail. Family does not want PEG tube placed. They prefer to pursue hospice and comfort feeding. Continue with above her arrangements for the patient to go to senior living with hospice. Mixed hyperlipidemia: Continue medication Severe protein calorie malnutrition: Continue comfort feeding Chronic systolic CHF: Overall stable. Will monitor closely. Parkinson: Continue medication. Time Spent Managing Pts Care (In Minutes): 55
[2019-07-08] MEDS: ATORVASTATIN 10 MG TAB PO SCH (22:04)
[2019-07-09] MEDS: CEFAZOLIN/SWI 2gm 2 GM/20 ML SYR IV SCH ×3 (01:35→17:29)
[2019-07-09] MEDS: CARBIDOPA/LEVODOPA 25/100 TAB PO SCH ×6 (01:35→20:40)
[2019-07-09] MEDS: D5 0.9 NS 1,000 ML with POTASSIUM CL 10 MEQ IV SCH ×4 (05:32→15:48)
[2019-07-09] MEDS: carvediloL 3.125 MG TAB PO SCH ×2 (07:13→17:17)
[2019-07-09] MEDS: GABAPENTIN 100 MG CAP FT SCH ×2 (09:50→20:40)
[2019-07-09] MEDS: VITAMIN D 5,000 UNIT CAP PO SCH (09:50)
[2019-07-09] MEDS: lisinopriL 5 MG TAB PO SCH (09:51)
[2019-07-09] MEDS: MUPIROCIN 2% OINT 22GM TUBE TOP SCH (09:51)
[2019-07-09] MEDS: THIAMINE 200 MG/2 ML INJ IVP SCH (09:54)
[2019-07-09] MEDS: CALCITROL 0.25 MCG CAP PO SCH (09:54)
--- NOTE | 2019-07-09 16:51 | P.PN ---
Subjective Date of Service: 07/09/19 Primary Care Provider: Dr. Pandya Chief Complaint: Transient episode of respiratory distress Subjective: Doing well Physical Examination - Vital Signs Temperature: 98.4 F Blood Pressure: 118/56 Pulse: 91 Respirations: 16 Pulse Ox (%): 99 - Physical Exam General: Alert HEENT: Atraumatic Neck: Supple Respiratory: Clear to auscultation bilaterally, Normal air movement Cardiovascular: Normal pulses, Regular rate/rhythm Gastrointestinal: Normal bowel sounds Neurological: Normal speech, Normal tone - Studies Medications List Reviewed: Yes (takes Coreg, Lisinopril, Pravastatin, Carbidopa/levodopa, Singulair) Assessment & Plan Discharge Plan: [facility] (With hospice) Plan to discharge in: 24 Hours Physician Review Additional Text: Impression: Sepsis, resolved secondary to bacteremia, urine culture positive for Staph aureus Fever and fatigue related to above Toxic encephalopathy resolved Cerebral palsy with ataxia chronic Acute kidney injury secondary to sepsis Elevated troponin secondary to cardiac strain Thrombocytopenia improved Dysphagia with risk of silent aspiration, failed modified barium swallow Mixed hyperlipidemia Severe protein calorie malnutrition Chronic systolic CHF Parkinson Plan: Sepsis, resolved secondary to bacteremia, urine culture positive for Staph aureus: Patient remains on IV antibiotic therapy. Patient has 3 more days on antibiotic therapy. Will continue to monitor closely. Patient denied by 2 nursing homes already. Awaiting approval from [facility]. If approved patient can go to [facility] on hospice. Continue with current plan of care. Patient has tested negative for COVID. Currently awaiting approval to go to shelter with hospice in place and comfort feeding. Fever and fatigue related to above: Continue as above Toxic encephalopathy resolved: Continue with above plan of care. Cerebral palsy with ataxia chronic: Overall stable. Acute kidney injury secondary to sepsis: Continue with IV fluids until discha rge. Elevated troponin secondary to cardiac strain: No further cardiac intervention required. Thrombocytopenia improved: Stable. Dysphagia with risk of silent aspiration, failed modified barium swallow: Patient at high risk for aspiration. This was addressed with family in detail. Family does not want PEG tube placed. They prefer to pursue hospice and comfort feeding. Continue with above her arrangements for the patient to go to shelter with hospice. Mixed hyperlipidemia: Continue medication Severe protein calorie malnutrition: Continue comfort feeding Chronic systolic CHF: Overall stable. Will monitor closely. Parkinson: Continue medication. Time Spent Managing Pts Care (In Minutes): 55
[2019-07-09] MEDS: ATORVASTATIN 10 MG TAB PO SCH (20:40)
[2019-07-10] MEDS: CARBIDOPA/LEVODOPA 25/100 TAB PO SCH ×6 (00:25→19:53)
[2019-07-10] MEDS: CEFAZOLIN/SWI 2gm 2 GM/20 ML SYR IV SCH ×3 (00:25→16:37)
[2019-07-10] MEDS: carvediloL 3.125 MG TAB PO SCH ×2 (05:42→18:33)
[2019-07-10] MEDS: VITAMIN D 5,000 UNIT CAP PO SCH (08:30)
[2019-07-10] MEDS: lisinopriL 5 MG TAB PO SCH (08:30)
[2019-07-10] MEDS: GABAPENTIN 100 MG CAP FT SCH ×2 (08:30→19:53)
[2019-07-10] MEDS: CALCITROL 0.25 MCG CAP PO SCH (10:31)
[2019-07-10] MEDS: THIAMINE 200 MG/2 ML INJ IVP SCH (10:31)
[2019-07-10] MEDS: MUPIROCIN 2% OINT 22GM TUBE TOP SCH (10:36)
--- NOTE | 2019-07-10 14:08 | P.PN ---
Subjective Date of Service: 07/10/19 Primary Care Provider: Dr. Pandya Chief Complaint: Transient episode of respiratory distress Subjective: Doing well Physical Examination - Vital Signs Temperature: 99.1 F Blood Pressure: 102/51 Pulse: 90 Respirations: 17 Pulse Ox (%): 98 - Physical Exam General: Alert, Cooperative HEENT: Atraumatic Neck: Supple Respiratory: Clear to auscultation bilaterally, Normal air movement Cardiovascular: Normal pulses, Regular rate/rhythm Neurological: Normal speech - Studies Medications List Reviewed: Yes (takes Coreg, Lisinopril, Pravastatin, Carbidopa/levodopa, Singulair) Assessment & Plan Discharge Plan: Home Plan to discharge in: 24 Hours Physician Review Additional Text: Impression: Sepsis, resolved secondary to bacteremia, urine culture positive for Staph aureus Fever and fatigue related to above Toxic encephalopathy resolved Cerebral palsy with ataxia chronic Acute kidney injury secondary to sepsis Elevated troponin secondary to cardiac strain Thrombocytopenia improved Dysphagia with risk of silent aspiration, failed modified barium swallow Mixed hyperlipidemia Severe protein calorie malnutrition Chronic systolic CHF Parkinson Plan: Sepsis, resolved secondary to bacteremia, urine culture positive for Staph aureus: Patient remains on IV antibiotic therapy. Patient has 2 more days on antibiotic therapy. Will continue to monitor closely. Patient denied by 2 nursing homes already. Awaiting approval from [facility] [place]. If approved patient can go to [facility] [place] on hospice. Continue with current plan of care. Patient has tested negative for COVID. Currently awaiting approval to go to residential with hospice in place and comfort feeding. Fever and fatigue related to above: Continue as above Toxic encephalopathy resolved: Continue with above plan of care. Cerebral palsy with ataxia chronic: Overall stable. Acute kidney injury secondary to sepsis: Continue with IV fluids until discharge. Elevated troponin secondary to cardiac strain: No further cardiac intervention required. Thrombocytopenia improved: Stable. Dysphagia with risk of silent aspiration, failed modified barium swallow: Patie nt at high risk for aspiration. This was addressed with family in detail. Family does not want PEG tube placed. They prefer to pursue hospice and comfort feeding. Continue with above her arrangements for the patient to go to residential with hospice. Mixed hyperlipidemia: Continue medication Severe protein calorie malnutrition: Continue comfort feeding Chronic systolic CHF: Overall stable. Will monitor closely. Parkinson: Continue medication. Time Spent Managing Pts Care (In Minutes): 55
[2019-07-10] MEDS: ATORVASTATIN 10 MG TAB PO SCH (19:53)
[2019-07-11] MEDS: CARBIDOPA/LEVODOPA 25/100 TAB PO SCH ×6 (01:02→22:23)
[2019-07-11] MEDS: CEFAZOLIN/SWI 2gm 2 GM/20 ML SYR IV SCH ×3 (01:02→16:46)
[2019-07-11] MEDS: carvediloL 3.125 MG TAB PO SCH ×2 (05:33→18:00)
[2019-07-11] MEDS: GABAPENTIN 100 MG CAP FT SCH ×2 (08:27→22:23)
[2019-07-11] MEDS: CALCITROL 0.25 MCG CAP PO SCH (08:27)
[2019-07-11] MEDS: THIAMINE 200 MG/2 ML INJ IVP SCH (08:28)
[2019-07-11] MEDS: VITAMIN D 5,000 UNIT CAP PO SCH (08:28)
[2019-07-11] MEDS: lisinopriL 5 MG TAB PO SCH (08:28)
[2019-07-11] MEDS: ACETAMINOPHEN 500 MG TAB PO PRN (08:29)
[2019-07-11] MEDS: MUPIROCIN 2% OINT 22GM TUBE TOP SCH (12:43)
--- NOTE | 2019-07-11 17:10 | P.PN ---
Subjective Date of Service: 07/11/19 Primary Care Provider: Dr. Pandya Chief Complaint: Transient episode of respiratory distress Subjective: Doing well Physical Examination - Vital Signs Temperature: 98.8 F Blood Pressure: 104/57 Pulse: 91 Respirations: 18 Pulse Ox (%): 93 - Physical Exam General: Alert HEENT: Atraumatic Neck: Supple Respiratory: Clear to auscultation bilaterally, Normal air movement Cardiovascular: Normal pulses, Regular rate/rhythm - Studies Medications List Reviewed: Yes (takes Coreg, Lisinopril, Pravastatin, Carbidopa/levodopa, Singulair) Assessment & Plan Discharge Plan: Other (group home with hospice) Plan to discharge in: 48 Hours Physician Review Additional Text: Impression: Sepsis, resolved secondary to bacteremia, urine culture positive for Staph aureus Fever and fatigue related to above Toxic encephalopathy resolved Cerebral palsy with ataxia chronic Acute kidney injury secondary to sepsis Elevated troponin secondary to cardiac strain Thrombocytopenia improved Dysphagia with risk of silent aspiration, failed modified barium swallow Mixed hyperlipidemia Severe protein calorie malnutrition Chronic systolic CHF Parkinson Plan: Sepsis, resolved secondary to bacteremia, urine culture positive for Staph aureus: Patient remains on IV antibiotic therapy. Patient has 1 more day on antibiotic therapy. Will continue to monitor closely. Patient denied by 2 nursing homes already. Awaiting approval from [facility]. If approved patient can go to [facility] on hospice. Continue with current plan of care. Patient has tested negative for COVID. Currently awaiting approval to go to [facility] with hospice in place and comfort feeding. Fever and fatigue related to above: Continue as above Toxic encephalopathy resolved: Continue with above plan of care. Cerebral palsy with ataxia chronic: Overall stable. Acute kidney injury secondary to sepsis: Continue with IV fluids until discharge. Elevated troponin secondary to cardiac strain: No further cardiac intervention required. Thrombocytopenia improved: Stable. Dysphagia with risk of silent aspiration, failed modified barium swallow: Patient at high risk for aspiration. This was addressed with family in detail. Family does not want PEG tube placed. They prefer to pursue hospice and comfort feeding. Continue with above her arrangements for the patient to go to [facility] with hospice. Mixed hyperlipidemia: Continue medication Severe protein calorie malnutrition: Continue comfort feeding Chronic systolic CHF: Overall stable. Will monitor closely. Parkinson: Continue medication. Time Spent Managing Pts Care (In Minutes): 45
[2019-07-11] MEDS: ATORVASTATIN 10 MG TAB PO SCH (22:23)
[2019-07-12] MEDS: CARBIDOPA/LEVODOPA 25/100 TAB PO SCH ×6 (00:43→20:31)
[2019-07-12] MEDS: CEFAZOLIN/SWI 2gm 2 GM/20 ML SYR IV SCH ×3 (00:44→16:27)
[2019-07-12] MEDS: carvediloL 3.125 MG TAB PO SCH ×2 (05:54→17:43)
[2019-07-12] MEDS: MUPIROCIN 2% OINT 22GM TUBE TOP SCH (09:00)
[2019-07-12] MEDS: GABAPENTIN 100 MG CAP FT SCH ×2 (09:12→20:31)
[2019-07-12] MEDS: lisinopriL 5 MG TAB PO SCH (09:13)
[2019-07-12] MEDS: VITAMIN D 5,000 UNIT CAP PO SCH (09:14)
[2019-07-12] MEDS: THIAMINE 200 MG/2 ML INJ IVP SCH (09:14)
[2019-07-12] MEDS: CALCITROL 0.25 MCG CAP PO SCH (09:14)
--- NOTE | 2019-07-12 14:47 | P.PN ---
Subjective Date of Service: 07/12/19 Primary Care Provider: Dr. Pandya Chief Complaint: Transient episode of respiratory distress Subjective: Doing well Physical Examination - Vital Signs Temperature: 97 F Blood Pressure: 82/47 Pulse: 91 Respirations: 20 Pulse Ox (%): 98 - Physical Exam General: Alert, Cooperative HEENT: Atraumatic Neck: Supple Respiratory: Clear to auscultation bilaterally, Normal air movement Cardiovascular: Normal pulses, Regular rate/rhythm Neurological: Normal speech - Studies Medications List Reviewed: Yes (takes Coreg, Lisinopril, Pravastatin, Carbidopa/levodopa, Singulair) Assessment & Plan [facility] Plan to discharge in: 24 Hours Physician Review Additional Text: Impression: Sepsis, resolved secondary to bacteremia, urine culture positive for Staph aureus Fever and fatigue related to above Toxic encephalopathy resolved Cerebral palsy with ataxia chronic Acute kidney injury secondary to sepsis Elevated troponin secondary to cardiac strain Thrombocytopenia improved Dysphagia with risk of silent aspiration, failed modified barium swallow Mixed hyperlipidemia Severe protein calorie malnutrition Chronic systolic CHF Parkinson Plan: Sepsis, resolved secondary to bacteremia, urine culture positive for Staph aureus: Patient remains on IV antibiotic therapy. Today will be the last day. Antibiotics can be discontinued tomorrow. Patient denied by 2 nursing homes already. Awaiting approval from [facility]. If approved patient can go to [facility] on hospice. Continue with current plan of care. Patient has tested negative for COVID. Currently awaiting approval to go to [facility] with hospice in place and comfort feeding. Anticipate discharge tomorrow. I will turn the service over to the hospitalist team tomorrow. I will go over the plan of care with him.. Fever and fatigue related to above: Continue as above Toxic encephalopathy resolved: Continue with above plan of care. Cerebral palsy with ataxia chronic: Overall stable. Acute kidney injury secondary to sepsis: Overall stable.. Elevated troponin secondary to cardiac strain: No further cardiac intervention required. Thrombocytopenia improved: Stable. Dysphagia with risk of silent aspiration, failed modified barium swallow: Patient at high risk for aspiration. This was addressed with family in detail. Family does not want PEG tube placed. They prefer to pursue hospice and comfort feeding. Continue with above her arrangements for the patient to go to [facility] with hospice. Mixed hyperlipidemia: Continue medication Severe protein calorie malnutrition: Continue comfort feeding Chronic systolic CHF: Overall stable. Will monitor closely. Parkinson: Continue medication. Time Spent Managing Pts Care (In Minutes): 55
[2019-07-12] MEDS: ATORVASTATIN 10 MG TAB PO SCH (20:31)
[2019-07-13] MEDS: CEFAZOLIN/SWI 2gm 2 GM/20 ML SYR IV SCH ×2 (02:02→09:00)
[2019-07-13] MEDS: CARBIDOPA/LEVODOPA 25/100 TAB PO SCH ×6 (02:02→20:56)
[2019-07-13] MEDS: ACETAMINOPHEN 500 MG TAB PO PRN ×2 (02:16→18:51)
[2019-07-13] MEDS: carvediloL 3.125 MG TAB PO SCH ×2 (05:35→17:20)
[2019-07-13] MEDS: THIAMINE 200 MG/2 ML INJ IVP SCH (09:00)
[2019-07-13] MEDS: VITAMIN D 5,000 UNIT CAP PO SCH (09:00)
[2019-07-13] MEDS: MUPIROCIN 2% OINT 22GM TUBE TOP SCH (09:00)
[2019-07-13] MEDS: GABAPENTIN 100 MG CAP FT SCH ×2 (09:00→20:56)
[2019-07-13] MEDS: lisinopriL 5 MG TAB PO SCH (09:00)
[2019-07-13] MEDS: CALCITROL 0.25 MCG CAP PO SCH (09:00)
--- NOTE | 2019-07-13 15:22 | P.PN ---
Subjective Date of Service: 07/13/19 Primary Care Provider: Dr. Pandya Chief Complaint: Transient episode of respiratory distress Subjective: No new changes, Improving Physical Examination - Vital Signs Temperature: 98.4 F Blood Pressure: 102/59 Pulse: 97 Respirations: 16 Pulse Ox (%): 98 - Physical Exam General: Alert, In no apparent distress HEENT: Atraumatic, Normocephalic Neck: Supple Respiratory: Clear to auscultation bilaterally, Normal air movement Cardiovascular: No edema, Regular rate/rhythm Capillary refill: <2 Seconds Gastrointestinal: Soft and benign, W/out hepatosplenomegaly Musculoskeletal: No clubbing, No swelling Integumentary: No rashes Neurological: Dementia Lymphatics: No axilla or inguinal lymphadenopathy Rectal: Deferred - Studies Medications List Reviewed: Yes (takes Coreg, Lisinopril, Pravastatin, Carbidopa/levodopa, Singulair) Assessment & Plan Physician Review Additional Text: Impression: Sepsis, resolved secondary to bacteremia, urine culture positive for Staph aureus Fever and fatigue related to above Toxic encephalopathy resolved Cerebral palsy with ataxia chronic Acute kidney injury secondary to sepsis Elevated troponin secondary to cardiac strain Thrombocytopenia improved Dysphagia with risk of silent aspiration, failed modified barium swallow Mixed hyperlipidemia Severe protein calorie malnutrition Chronic systolic CHF Parkinson Plan: Sepsis, resolved secondary to bacteremia, urine culture positive for Staph aureus: Patient remains on IV antibiotic therapy. Today will be the last day. Antibiotics can be discontinued tomorrow. Patient denied by 2 nursing homes already. Awaiting approval from [facility]. If approved patient can go to [facility] on hospice. Continue with current plan of care. Patient has tested negative for COVID. Currently awaiting approval to go to [facility] with hosp[facility] in place and comfort feeding. Fever and fatigue related to above: Continue as above Toxic encephalopathy resolved: Continue with above plan of care. Cerebral palsy with ataxia chronic: Overall stable. Acute kidney injury secondary to sepsis: Overall stable.. Elevated troponin secondary to cardiac strain: No further cardiac intervention required. Thrombocytopenia improved: Stable. Dysphagia with risk of silent aspiration, failed modified barium swallow: Patient at high risk for aspiration. This was addressed with family in detail. Family does not want PEG tube placed. They prefer to pursue hospice and comfort feeding. Continue with above her arrangements for the patient to go to [facility]. Mixed hyperlipidemia: Continue medication Severe protein calorie malnutrition: Continue comfort feeding Chronic systolic CHF: Overall stable. Will monitor closely. Parkinson: Continue medication. Awaiting placement Time Spent Managing Pts Care (In Minutes): 35
[2019-07-13] MEDS: ATORVASTATIN 10 MG TAB PO SCH (20:57)
[2019-07-14] MEDS: CARBIDOPA/LEVODOPA 25/100 TAB PO SCH ×3 (01:04→09:40)
[2019-07-14] MEDS: carvediloL 3.125 MG TAB PO SCH (06:13)
[2019-07-14 06:32] LABS: Potassium 4.2 mmol/L (3.5-5.1)
[2019-07-14 06:59] LABS: Absolute Lymphocytes (CBC) 0.6 K/uL (0.7-4.9); Basophils % 0.3 % (0-1.3); Hematocrit 33.3 % (39.6-49.0); Lymphocytes % 4.4 % (15.3-44.8); MPV 9.2 fL (7.6-11.3); RBC Red Blood Cell Count 3.56 M/uL (4.33-5.43)
[2019-07-14 08:19] VITALS: BP 94/54; TEMP 98.5
[2019-07-14] MEDS: GABAPENTIN 100 MG CAP FT SCH (09:00)
[2019-07-14] MEDS: lisinopriL 5 MG TAB PO SCH (09:00)
[2019-07-14 09:10] VITALS: O2SAT 96
[2019-07-14] MEDS: MUPIROCIN 2% OINT 22GM TUBE TOP SCH (09:39)
[2019-07-14] MEDS: THIAMINE 200 MG/2 ML INJ IVP SCH (09:40)
[2019-07-14] MEDS: VITAMIN D 5,000 UNIT CAP PO SCH (09:40)
[2019-07-14] MEDS: CALCITROL 0.25 MCG CAP PO SCH (09:40)
--- NOTE | 2019-07-14 09:41 | P.DS ---
Admission Date: 06/27/19 Discharge Date: 07/14/19 Primary Care Provider: Dr. Pandya Disposition: HOSPICE-HOME Discharge Condition: FAIR Reason for Admission: Transient episode of respiratory distress Hospital Course: Admitting Diagnoses: 1. Septic shock. 2. Parkinson disease. 3. Status post heart valve repair. 4. Hemochromatosis. 5. Hypertension. 6. Acute kidney injury. 7. Elevated troponin. Discharge Diagnoses: 1. Sepsis, resolved. 2. Bacteremia secondary to methicillin-susceptible Staphylococcus aureus. 3. Fever and fatigue, resolved, secondary to sepsis and bacteremia. 4. Toxic encephalopathy, resolved, back to baseline. 5. Cerebral palsy with ataxia, chronic. 6. Acute kidney injury secondary to sepsis, improved. 7. Elevated troponin level from cardiac strain with recent heart valve replacement. Echo normal, no vegetation. 8. Thrombocytopenia, improved. 9. Patient under investigation for coronavirus disease 2018; test was negative. 10. 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 11. Dysphagia, unable to tolerate any feeds without risk of silent aspiration. 12. Mixed hyperlipidemia. 13. Severe protein-calorie malnutrition, improving. 14. Hypokalemia replaced. Hospital Course: Patient is a 79-year-old gentleman, comes in with confusion, has history of cardiac valve surgery, Parkinson disease, apparent cerebral palsywith ataxia, hemochromatosis, hypertension, came in with confusion and falls, not eating well. Patient was found to have sepsis, elevated temperature, and elevated cardiac enzymes as well. Patient was started on broad-spectrum IV antibiotics. Workup including spinal tap was done. CSF culture did not show any growth. CSF bacterial antigens were negative. COVID testing was also done,which was negative. Blood cultures did grow out MSSA. Influenza screen was also negative as was the urine culture. Patient had some thrombocytopenia. Blood smear was done, which was negative. His fevers improved. His kidney function also was corrected. This was likely secondary to sepsis. He was seen by Cardiology for his elevated liver enzymes. Echocardiogram was also done, which showed EF of 30% with severe global hypokinesis. Patient initially was inthe ICU. His echo did not show any thrombus or vegetation on the recent aortic valve replacement, which is bioprosthetic. The elevated troponin was thought garret due to cardiac strain and Cardiology did not recommend any further workup. Patient was also seen by Pulmonology. Patient overall improved. He was also seen by Neurology due to his altered mental status. Head CT scan did not show any acute changes. Due to his ataxia, lumbar and cervical spine MRIs were done,which showed some spondylosis. However, he would need further EMG studies to completely elucidate his reason for ataxia. He does have Parkinson's and cerebral palsy which was chronic. Patient was also having difficulty swallowing. Had some choking episodes. Therefore, speech therapist was consulted. Swallowing evaluation including modified barium swallow study showedsigns of aspiration with all consistencies. Therefore, patient was placed as n.p.o. and Dobhoff was placed with feedings. Family was contacted for surrogatedecision making due to patient's mental status. They did not wish to have a PEGtube placed. Patient was initially referred to rehab to continue with PT, OT, and ST, however, was unable to participate in physical therapy well enough to qualify. care home facility was not an option for the family as they did not wish to pursue PEG tube placement; therefore, patient's family chose hospice. They understand that hospice means care and comfort measures only and he will not be aggressively treated with any IVs including IV antibiotics or have any major procedures. He was accepted under hospice care in a facility. His blood pressure also improved. Initially, he was very hypotensive requiring pressors. Blood pressure now steady in the 120s to 130s. He was able to tolerate low-dose beta-hugo and CARA inhibitor. He will likely need low-dose Lasix as well. For his bacteremia, he will need to finish off course of clindamycin for a total of 2 weeks. Patient has already been on antibiotics for5 days. Patient did have some swelling of his left hand likely due to IV infiltration. X-ray was done, did not show any acute changes. There was no identifiable trauma. Did show possible calcification. This suggested that foreign body could also have a similar appearance; however, there was no foreign body found. Erythema improved. He was encouraged to utilize his left arm and elevate it as necessary. Patient was started on pleasure feeding. He was also self suctioning his mouth for excessive oral secretions. He has been accepted to hospice in the facility. Vital Signs/Physical Exam: Temp Pulse Resp BP Pulse Ox 98.5 F 102 H 15 94/54 L 90 L 07/14/19 08:00 07/14/19 08:00 07/14/19 08:00 07/14/19 08:00 07/14/19 08:00 General: Confused, Other (Awake) HEENT: Mucous membr. moist/pink Neck: Supple Respiratory: Other (Bilateral upper airway transmitted sounds.) Cardiovascular: No edema, Regular rate/rhythm Gastrointestinal: Normal bowel sounds, Soft and benign, Non-distended, No tenderness Musculoskeletal: No swelling Neurological: Dementia Laboratory Data at Discharge: WBC 12.8 K/uL (4.3-10.9) H D 07/14/19 05:24 Hgb 10.6 g/dL (13.6-17.9) L 07/14/19 05:24 Hct 33.3 % (39.6-49.0) L 07/14/19 05:24 Plt Count 202 K/uL (152-406) D 07/14/19 05:24 PT 13.8 SECONDS (9.5-12.5) H 06/28/19 04:37 INR 1.17 06/28/19 04:37 APTT 31.5 SECONDS (24.3-36.9) 06/28/19 04:37 Sodium 139 mmol/L (136-145) 07/14/19 05:24 Potassium 4.2 mmol/L (3.5-5.1) 07/14/19 05:24 BUN 21 mg/dL (7-18) H 07/14/19 05:24 Creatinine 0.83 mg/dL (0.55-1.3) 07/14/19 05:24 Glucose 119 mg/dL (74-106) H 07/14/19 05:24 Phosphorus 2.9 mg/dL (2.5-4.9) 06/28/19 04:37 Magnesium 2.1 mg/dL (1.8-2.4) 06/30/19 05:14 Total Bilirubin 0.4 mg/dL (0.2-1.0) 06/30/19 05:14 AST 74 U/L (15-37) H 06/30/19 05:14 ALT 46 U/L (12-78) 06/30/19 05:14 Alkaline Phosphatase 39 U/L (45-117) L 06/30/19 05:14 Troponin I 0.82 ng/mL (0.0-0.045) H* 06/28/19 04:37 Home Medications: Atorvastatin Calcium [Lipitor*] 1 tab PO BEDTIME 06/27/19 Carbidopa/Levodopa 25-100 [Sinemet 25-100*] 1 tab PO Q4H 06/27/19 Carvedilol [Coreg] 1 tab PO BID 06/27/19 Lisinopril [Zestril] 1 tab PO DAILY 06/27/19 Montelukast Sodium [Singulair] 1 tab PO BEDTIME 06/27/19 Nystatin Oint [Mycostatin 100 Mu/Gm Oint*] 1 appl TOP BID 06/27/19 Clindamycin HCl 150 mg PO Q8H #30 capsule 07/03/19 Furosemide [Lasix] 20 mg PO SEECOM #30 tab 07/03/19 Gabapentin [Neurontin*] 100 mg PO BID #60 cap 07/03/19 Mupirocin Oint [Bactroban 2% Ointment*] 1 appl TOP DAILY #1 tube 07/03/19 New Medications: Mupirocin Oint [Bactroban 2% Ointment*] 1 appl TOP DAILY #1 tube Clindamycin HCl 150 mg PO Q8H #30 capsule Furosemide [Lasix] 20 mg PO SEECOM #30 tab Gabapentin [Neurontin*] 100 mg PO BID #60 cap Patient Discharge Instructions: Care and comfort measures Diet: pleasure feeds Activity: Fall precautions Time spent managing pt's care (in minutes): 40
[2019-07-14 10:16] LABS: Blood Morphology Comment NOT SEEN (NOT SEEN); Platelet Estimate ADEQ; Urine White Blood Cell Casts OK
== END 2019-07-14 12:45 | disposition hospice, inpatient (51) | DRG 871 ==
LOC: ER 23:27 → ERHOLD 06-27 06:00 → 3RD-ICU 06-27 21:16 → 2ND 06-29 16:30
PROVIDERS: ADMIT Hospitalist; ATTEND Internal Medicine
PROC: 009U3ZX Drainage of Spinal Canal, Percutaneous Approach, Diagnostic (ICD-10-PCS; principal; 2019-06-27)
PROC: 8E0ZXY6 Isolation (ICD-10-PCS; 2019-06-27)
PROC: 06HY33Z Insertion of Infusion Device into Lower Vein, Percutaneous Approach (ICD-10-PCS; 2019-06-30)
DX: A41.01 Sepsis due to Methicillin susceptible Staphylococcus aureus (principal); R65.21 Severe sepsis with septic shock; G92 Toxic encephalopathy; E43 Unspecified severe protein-calorie malnutrition; N17.9 Acute kidney failure, unspecified; E87.1 Hypo-osmolality and hyponatremia; E87.2 Acidosis; I50.22 Chronic systolic (congestive) heart failure; R27.0 Ataxia, unspecified; J30.2 Other seasonal allergic rhinitis; N28.9 Disorder of kidney and ureter, unspecified; N28.1 Cyst of kidney, acquired; G80.9 Cerebral palsy, unspecified; G20 Parkinson's disease; Z95.4 Presence of other heart-valve replacement; Z20.828 Contact with and (suspected) exposure to other viral communicable diseases; Z79.899 Other long term (current) drug therapy; E83.42 Hypomagnesemia; R73.9 Hyperglycemia, unspecified; D50.9 Iron deficiency anemia, unspecified; E83.51 Hypocalcemia; I11.0 Hypertensive heart disease with heart failure; Z66 Do not resuscitate; D69.6 Thrombocytopenia, unspecified; E78.2 Mixed hyperlipidemia; R13.10 Dysphagia, unspecified; E87.6 Hypokalemia; M47.896 Other spondylosis, lumbar region; M47.892 Other spondylosis, cervical region; G62.9 Polyneuropathy, unspecified; Z68.20 Body mass index [BMI] 20.0-20.9, adult
CPT/HCPCS: 36415; 51702; 62270; 70450; 71045; 72141; 72148; 74176; 74230; 76770; 80048; 80053; 80076; 80202; 81003; 81015; 82140; 82607; 82746; 82945; 82947; 83010; 83540; 83605; 83615; 83735; 83880; 84100; 84132; 84157; 84484; 85025; 85610; 85730; 86403; 87040; 87070; 87077; 87086; 87088; 87186; 87205; 87804; 89050; 92526; 92611; 93005; 93306; 96361; 96365; 96366; 97110; 97112; 97161; 97530; 99285; J0690; J0696; J1650; J1720; J2405; J2543; J3411; J3475; J7030; J7040; J7042; J7060; U0002